=== PATIENT | male | born 1950 | race Caucasian/White ===

== ENCOUNTER 2016-06-25 11:41 | Inpatient (IN) | payer MEDICARE, OTHER ==
[~2016-06-25] VITALS: Ht 170.2 cm; Wt 87.5 kg
[~2016-06-25 11:41] MED LIST: MECL12.5 PO; METO50TA16 PO; RANO500T2 PO; VERA120T77 PO
[2016-06-25] MEDS ORDERED: ASPIRIN 325 MG TAB PO STA (12:17)
[2016-06-25] MEDS ORDERED: NITROGLYCERIN (SL) 0.4 MG TAB SL PRN ×2 (12:30→15:00)
--- NOTE | 2016-06-25 12:41 | RADRPT ---
PROCEDURE: XR Chest. CLINICAL INDICATION: Chest pain TECHNIQUE: Single frontal view of the chest was obtained COMPARISON: 07/22/15 FINDINGS: The heart is enlarged. The thoracic aorta is calcified. There is a possible 1 cm calcified granuloma in the left mid lung. There is no focal infiltrate. There is no pleural effusion or pneumothorax. RPTAT: AA IMPRESSION: Mild cardiomegaly. Calcified aorta consistent with atherosclerotic disease. Possible left midlung calcified granuloma. .Rom Reyes MD, MD Date Time Electronically viewed and signed by .Rom Reyes MD, on 06/25/2016 12:41 .S/
[2016-06-25 12:47] LABS: ADD SCAN DIFF NO
[2016-06-25 13:00] LABS: ABNORMAL IP MESSAGE 1; HEMATOCRIT 48.2 % (42.0-52.0); HEMOGLOBIN 15.9 g/dl (14.0-18.0); MEAN CORPUSCULAR HEMOGLOBIN 30.5 pg (29.0-33.0); MEAN CORPUSCULAR VOLUME 92.5 fl (82.0-101.0); RED BLOOD COUNT 5.21 10^6/ul (4.70-6.10); RED CELL DISTRIBUTION WIDTH 13.2 % (11.5-14.5)
[2016-06-25 13:01] LABS: POTASSIUM 4.4 mmol/L (3.5-5.1)
[2016-06-25 13:04] LABS: CREATININE 0.98 mg/dl (0.61-1.24)
[2016-06-25 13:05] LABS: CALCIUM 9.2 mg/dl (8.4-10.2)
[2016-06-25 13:08] LABS: INR 1.01; PROTIME 13.3 Sec (12.2-14.2)
[2016-06-25 13:09] LABS: PARTIAL THROMBOPLASTIN TIME 30.3 Sec (25.0-35.0)
[2016-06-25 13:25] LABS: TROPONIN-I 0.161 ng/ml (0.00-0.12)
[2016-06-25 13:31] LABS: CK-MB 4.99 ng/ml (0.0-2.4)
[2016-06-25 13:33] LABS: TROPONIN-I 0.167 ng/ml (0.00-0.12)
[2016-06-25] MEDS ORDERED: ATOR20TA38 PO (13:38)
[2016-06-25] MEDS ORDERED: NIAC100T2 PO (13:39)
[2016-06-25] MEDS ORDERED: SOD CHLORIDE 0.9% 1,000 ML IV SCH (14:01)
--- NOTE | 2016-06-25 14:01 | ERA ---
ER Documentation Chief Complaint Date/Time DATE: 06/25/16 TIME: 13:57 Chief Complaint REFERRED TO ED BY DR HERNANDEZ D/T UNSTABLE ANGINA HPI This is a 66-year-old male who presents to the emergency room for evaluation of chest pain. 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 Hernandez and was referred to the emergency room for evaluation of unstable angina. This patient does have a history of hypertension and CAD with a stent placed in 2016. He describes his pain as an achy pain in the center of his chest with no radiation, and no associated shortness of breath. This patient does state that he takes high blood pressure medication, high cholesterol medication. He is denying any relieving factors for his pain ROS All systems reviewed and are negative except as per history of present illness. Medications Home Meds Reported Medications Niacin* (Niacin*) 100 Mg Tablet, 100 MG PO QHS, TAB 06/25/16 Atorvastatin Calcium* (Atorvastatin Calcium*) 20 Mg Tablet, 20 MG PO QHS, #30 TAB 06/25/16 Ranolazine* (Ranexa*) 500 Mg Tab.sr.12h, 500 MG PO Q12, TAB 07/22/15 Metoprolol Succinate* (Toprol XL*) 50 Mg Tab.er.24h, 50 MG PO DAILY, #30 TAB 07/22/15 Verapamil Hcl* (Verapamil ER*) 120 Mg Tablet.er, 120 MG PO DAILY, TAB.SA 07/22/15 Discontinued Reported Medications Meclizine Hcl* (Meclizine Hcl*) 12.5 Mg Tablet, 12.5 MG PO DAILY Y for DIZZY, TAB 07/22/15 Allergies Allergies: Coded Allergies: No Known Drug Allergies (Verified Allergy, Unknown, 06/25/16) PMhx/Soc History of Surgery: Yes (RT INGUINAL HERNIA REPAIR) Anesthesia Reaction: No Hx Neurological Disorder: No Hx Respiratory Disorders: No Hx Cardiac Disorders: Yes (NM, STROKE) Hx Psychiatric Problems: No Hx Miscellaneous Medical Probl: No Hx Alcohol Use: No Hx Substance Use: No Hx Tobacco Use: Yes (2 TO 3 CIG A DAY) Physical Exam Vitals Vital Signs Date Time Temp Pulse Resp B/P Pulse Ox O2 Delivery O2 Flow Rate FiO2 06/25/16 11:44 96.7 62 16 101/59 99 Physical Exam INITIAL VITAL SIGNS: Reviewed by me GENERAL: The patient is well developed and appropriate for usual state of health in no apparent distress HEENT: Pupils equal, round, and reactive to light. EOMI. There is no scleral icterus. NECK: C-spine is soft and supple, there is no meningismus. There is no cervical lymphadenopathy. LUNGS: Clear to auscultation bilaterally. There are no rales, wheezes or rhonchi. HEART: Regular rate and rhythm, no murmurs, clicks, rubs or gallops. ABDOMEN: Soft, non-tender, non-distended. There are bowel sounds in all four quadrants. No rebound or guarding. EXTREMITIES: There is no peripheral cyanosis or edema. No focal swelling or erythema. NEUROLOGICAL: The patient moves all four extremities with 5/5 strength. Cranial nerves II - XII are intact. Normal gait. Alert and oriented SKIN: There is no apparent rash or petechiae. HEME/LYMPHATIC: There is no evidence of excessive bruising or lymphedema. PSYCHIATRIC: The patient does not appear anxious or depressed. Result Diagram: 06/25/16 1235 06/25/16 1235 Results 24 hrs Laboratory Tests Test 06/25/16 12:35 White Blood Count 7.610^3/ul Red Blood Count 5.2110^6/ul Hemoglobin 15.9g/dl Hematocrit 48.2% Mean Corpuscular Volume 92.5fl Mean Corpuscular Hemoglobin 30.5pg Mean Corpuscular Hemoglobin Concent 33.0g/dl Red Cell Distribution Width 13.2% Platelet Count Pending Mean Platelet Volume fl Neutrophils % 53.2% Lymphocytes % 37.4% Monocytes % 6.2% Eosinophils % 1.2% Basophils % 0.7% Nucleated Red Blood Cells % 0.0/100WBC Neutrophils # 4.010^3/ul Lymphocytes # 2.810^3/ul Monocytes # 0.510^3/ul Eosinophils # 0.110^3/ul Basophils # 0.110^3/ul Nucleated Red Blood Cells # 0.010^3/ul Prothrombin Time 13.3Sec Prothrombin Time Ratio 1.0 INR International Normalized Ratio 1.01 Activated Partial Thromboplast Time 30.3Sec Sodium Level 139mmol/L Potassium Level 4.4mmol/L Chloride Level 102mmol/L Carbon Dioxide Level 25mmol/L Anion Gap 16 Blood Urea Nitrogen 14mg/dl Creatinine 0.98mg/dl Glucose Level 97mg/dl Calcium Level 9.2mg/dl Creatine Kinase 126IU/L Creatine Kinase Index 4.0 Creatinine Kinase MB (Mass) 4.99ng/ml Troponin I 0.167ng/ml Current Medications Medications (Trade) Dose Ordered Sig/Chance Route PRN Reason Start Time Stop Time Status Last Admin Dose Admin Aspirin (Aspirin) 325 mg ONCE STAT PO 06/25/16 12:17 06/25/16 12:19 DC 06/25/16 12:37 Nitroglycerin (Nitroglycerin (Sl Tab) 0.4 Mg) 1 tab Q5M UP TO 3 DOSES PRN SL CHEST PAIN 06/25/16 12:30 06/25/16 12:38 Procedures/MDM EKG: #1 Rate/Rhythm: [Normal Sinus Rhythm] QRS, ST, T-waves: S and T-wave abnormality, consider inferior lateral ischemia Impression: [No evidence of ischemia or arrhythmia] EKG: #2 Rate/Rhythm: Sinus bradycardia QRS, ST, T-waves: [No changes consistent w/ acute ischemia] Impression: [No evidence of ischemia or arrhythmia] Chest X-ray 1V Interpreted by me: Soft Tissue: No acute abnormalities Bones: No acute abnormalities Mediastinum/Cardiac Silhouette/Lungs: [No acute abnormalities] This 66-year-old male presents to the emergency room for evaluation of chest pain. This patient was sent in by his flight data technician office, Dr. Hernandez. When I evaluated this patient he did describe having chest pain in the center of his chest. He was not hypoxic, and he was hemodynamically stable. His first EKG did show minor ST and T-wave abnormalities in the inferior lateral leads. Lab work was obtained including a troponin. The patient was also given nitroglycerin and aspirin in the emergency room. His troponin came back slightly elevated. The repeat EKG does not show any evolving changes. This patient will be placed in for admission at this time on a telemetry floor under the care of Dr. Burk. 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 Cardiac Critical Care: Excluding all billable procedures Time: 33 minutes Treatments/Evaluations: Close monitoring for dangerous arrhythmia and cardiovascular collapse, while treating with advance cardiac medications and techniques. Departure Diagnosis: Primary Impression: Non-ST elevation NM (NSTEMI) Additional Impression: Chest pain Condition: Stable NICOLLE DELGADO DO Jun 25, 2016 14:01
[2016-06-25 14:14] LABS: LYMPHOCYTES # 2.6 10^3/ul (0.8-2.9); MONOCYTE # 0.8 10^3/ul (0.3-0.9)
[2016-06-25 14:15] LABS: PLATELET ESTIMATE PLT APPEAR DECREASED
[2016-06-25 14:18] LABS: WHITE BLOOD COUNT 7.6 10^3/ul (4.8-10.8)
[2016-06-25] MEDS ORDERED: ONDANSETRON 4 MG INJ IV PRN ×2 (14:30→15:00)
[2016-06-25] MEDS ORDERED: ACETAMINOPHEN 325 MG TAB PO PRN (14:30)
[2016-06-25] MEDS ORDERED: NACL 0.9% 3 ML SYG IV SCH (15:00)
[2016-06-25] MEDS ORDERED: BISACODYL (EC) 5 MG TAB PO PRN (15:00)
[2016-06-25] MEDS ORDERED: DOCUSATE SODIUM 100 MG CAP PO PRN (15:00)
[2016-06-25] MEDS ORDERED: LORAZEPAM 0.5 MG TAB PO PRN (15:00)
[2016-06-25] MEDS ORDERED: morphine 2 MG INJ IV PRN (15:00)
[2016-06-25 15:44] LABS: CK-MB 6.67 ng/ml (0.0-2.4)
[2016-06-25 15:51] LABS: TROPONIN-I 0.366 ng/ml (0.00-0.12)
[2016-06-25 16:00] VITALS: TEMP 98.3
[2016-06-25] MEDS ORDERED: ENOXAPARIN 80 MG/0.8 ML SYG SC SCH (16:30)
[2016-06-25 17:06] VITALS: BP 117/69; PULSE 60; RESP 18; Ht 170.2 cm; Wt 87.5 kg
[2016-06-25 17:13] VITALS: PULSE 67
[2016-06-25] MEDS: DEXTROSE 5%-0.45% NACL 1,000 ML IV SCH (17:35)
--- NOTE | 2016-06-25 18:09 | CONS ---
DATE OF ADMISSION: 06/25/2016 DATE OF CONSULTATION: 06/25/2016 REASON FOR CONSULTATION: Chest pain, positive troponin concerning for non-ST elevation myocardial i nfarction. History of percutaneous transluminal coronary angioplasty and stent placed. REQUESTING PHYSICIAN: Dr. Bueno from the hospitalist service. HISTORY OF PRESENT ILLNESS: Mr. Horowitz is a 66-year-old male with history of prior PTCA and stent placement to circumflex, patent by left heart catheterization 07/2015, hypertension, dyslipidemia wh o presented with complaints of substernal chest pain, onset this morning that awoke him from sleep, describes a pressure-like sensation. Upon arrival in the emergency department, temperature 96.7, bl ood pressure 101/59, pulse 60, respirations 16, saturating 99%. The patient's labs were notable for a sodium 139, potassium 4.4, creatinine 0.9, BUN 14. Troponin negative. White blood count 7.6, he moglobin 15.9, platelet count 71 and INR of 1.0. The patient underwent a chest x-ray revealing mild cardiomegaly and calcified aorta. The patient's electrocardiogram revealed normal sinus rhythm at a rate of 60, normal axis, normal intervals with inferior and lateral T-wave inversions. The patien t subsequently has been waiting in the ER for admission. Patient states he had some improvement in chest pain but still has mild substernal chest pain. PAST MEDICAL HISTORY: As above in HPI. MEDICATIONS CURRENTLY IN HOSPITAL: 1. Toprol-XL 50 mg daily. 2. Verapamil 120 mg daily. 3. Aspirin 81 mg daily. 4. Lipitor 20 mg at bedtime. 5. Niacin 100 mg at bedtime. 6. Ranexa 500 mg every 12 hours. 7. Pepcid 20 q.12h. 8. IV fluid hydration. ALLERGIES: NO KNOWN DRUG ALLERGIES. SOCIAL HISTORY: No tobacco, ETOH or illicit drug use. FAMILY HISTORY: Negative for sudden cardiac or early CAD. REVIEW OF SYSTEMS: As above in HPI. CONSTITUTIONAL: No fevers, chills. PULMONARY: No current shortness of breath. CARDIOVASCULAR: Intermittent chest pain. GASTROINTESTINAL: No vomiting. GENITOURINARY: No hematuria. MUSCULOSKELETAL: Degenerative joint disease. PSYCHIATRIC: The patient denies depression. NEUROLOGIC: No documented history of CVA. PHYSICAL EXAMINATION: VITAL SIGNS: Temperature 98.3, blood pressure 117/74, pulse 54, respirations 20, sat 98%. GENERAL: The patient is alert, awake and complaining of substernal chest pain. NECK: JVP approximately 8 cm water. CHEST: Fair air movement throughout. HEART: Bradycardic, regular rhythm, normal S1, S2, I/ systolic murmur, nondisplaced PMI. ABDOMEN: Positive bowel sounds, soft. EXTREMITIES: No edema, 1+ pulses bilateral posterior tibial. LABORATORY DATA: As above in HPI. Since admit patient had troponins which are mildly up trended fr om 0.161 to 0.366. IMAGING STUDIES: As above in HPI. No further imaging studies for my review at this time. ECG: As above in HPI. No further electrocardiograms for my review at this time. IMPRESSION: 1. Positive troponin concerning for non-ST elevation myocardial infarction with mild up trending. 2. Chest pain concerning for acute coronary syndrome. 3. Abnormal electrocardiogram with inferior and lateral T-wave inversions. Assess for acute harrison ry syndrome. 4. History of percutaneous transluminal coronary angioplasty and stent placement to circumflex, pat ent by catheterization in July 2015. 5. Dyslipidemia. 6. Hypertension. RECOMMENDATIONS: 1. At this time, would maintain patient on telemetry monitoring to follow rhythm and rate control c losely. 2. We will continue the patient's Toprol-XL but will discontinue the patient's verapamil given some low blood pressure readings, follow blood pressure closely. Continue to trend the patient's cardia c enzymes to assess for any significant cardiac damage and if patient does begin to have an uptrend then at that time would initiate the patient on systemic anticoagulation with heparin and/or Lovenox . 3. Continue the patient's aspirin at this time. We will give consideration to initiation of Plavix. 4. Check a fasting lipid panel and adjust the patient's statin and Niacin therapy as necessary. 5. Will check a 2D echocardiogram to further assess patient's ejection fraction, wall motion and an y major valve abnormalities. 6. If the patient has no significant uptrend on cardiac enzymes will consider stress testing. If ruy ruggiero does continue to have chest pain concerning for acute coronary syndrome or further up trending cardiac enzymes the patient will be scheduled for left heart catheterization to take place as soon as possible. Thank you for allowing me to take part in the care of this patient. I will continue to follow very closely with you with further recommendations to be made as patient progresses through his inpatient hospital clinical course. Dictated By: GHULAM CHANEL/RUPERTO Conf#: [id number] DID#: [id number] CC: RIO BUENO MD;*EndCC*
--- NOTE | 2016-06-25 18:50 | HP ---
DATE OF ADMISSION: 06/25/2016 UNDER WATER ASSISTANT: Dr. Christian Hernandez. CHIEF COMPLAINT: Chest pain. HISTORY OF PRESENT ILLNESS: This is a pleasant 66-year-old gentleman with past medical history of h ypertension, dyslipidemia, coronary artery disease status post PCI x2 and thrombocytopenia who prese nts to [facility] secondary to having chest pain which woke him up this morning at 3:00 a.m. The patient denies having any nausea, vomiting or diarrhea. The chest pain was 8/10, ra diating to his left shoulder, accompanied with shortness of breath without any diaphoresis. Upon ar rival to the emergency room, the patient's EKG showed normal sinus rhythm, ST-T wave abnormality, co nsider inferior lateral ischemia, no evidence of ischemia or arrhythmia. Patient was found to have mildly elevated troponin of 0.161. Cardiology was consulted. He was placed on Lovenox 80 mg, aspir in and nitroglycerin. At this time, he stated that the chest discomfort has been improving, althoug h he is still having some discomfort in the left anterior chest area. Denies any other discomfort. PAST MEDICAL AND SURGICAL HISTORY: As above per HPI. MEDICATIONS: 1. Lipitor 20 mg. 2. Toprol-XL 50 mg. 3. Niacin 100 mg. 4. Lovenox 50 mg. 5. Verapamil 120 mg. ALLERGIES: NO KNOWN DRUG ALLERGIES. FAMILY HISTORY: Noncontributory. SOCIAL HISTORY: Positive for smoking 7 to 8 cigarettes per day. No alcohol, no illicit drugs. REVIEW OF SYSTEMS: As above per HPI. Denies any fever, chills, weight gain, weight loss, anorexia. Positive for chest pain. No shortness of breath, no palpitation, no edema. No acute visual acuit y, diplopia, no wheezing, no neck pain, no restricted range of motion in upper and lower extremities . No dysuria, hematuria, urgency, incontinence. No change in the color of stool, or any other disc omfort. PHYSICAL EXAMINATION: VITAL SIGNS: Temperature 98.3, pulse 60, respiration 20, blood pressure 124/70, oxygen 98% in room air. GENERAL APPEARANCE: The patient is lying in bed comfortably without acute distress. He is awake, a lert, oriented. He is able to answer my questions properly. EYES AND ENT: Conjunctivae and lids are normal. Pupils are normal. Hearing grossly normal. Lips were normal. Oral mucosa moist. NECK: Supple. Trachea is midline. No lymphadenopathy. RESPIRATORY: Effort is normal. Clear to auscultation bilaterally. CARDIOVASCULAR: Normal S1, S2. Regular rhythm and rate. No murmur, no bruits, no edema. Peripher al pulses, radial pulses palpable. Cap refill is normal. CHEST: Normal expansion of thorax during inspiration. GASTROINTESTINAL: Abdomen is soft, nontender, not distended. Bowel sounds present. No guarding or rebound. GENITOURINARY: Deferred. MUSCULOSKELETAL: Upper and lower extremities within normal limits. Full range of motion, strength 5/5 both upper and lower extremities. NEUROLOGIC: Cranial nerves II through XII are grossly intact. PSYCHIATRIC: Normal judgment and insight. Alert and oriented x3. Mood and affect is normal. LABORATORY WORK AND IMAGING: Sodium 139, potassium 4.4, chloride 102, bicarbonate 25, BUN 14, creat inine 0.98, glucose 97, calcium 9.2. Troponin 0.161, 0.167 0.366, WBC 7.6, hemoglobin 15.9, hematoc rit 48.2, platelets 71. ASSESSMENT AND PLAN: 1. Non-ST myocardial infarction. Cardiology has been consulted. Patient was treated with a dose o f Lovenox in the course of emergency room. 2. Aspirin 325 mg. At this time, will place the patient on aspirin 325 mg, secondary to thrombocyt openia. Cardiology has been consulted. Patient has been set up for the stress test tomorrow. 3. Essential hypertension, well controlled on Toprol and verapamil. 4. History of thrombocytopenia, chronic no evidence of bleeding. 5. Nicotine dependency. Place the patient on nicotine patch. Education was provided. Smoking jhony sation was recommended. 6. Dyslipidemia. Continue statin. Follow low up lipid panel in a.m. We will continue to monitor patient closely. Further recommendations, management and treatment as per clinical course. Total amount of time was spent for evaluation of patient and admission workup 40 minutes. Dictated By: RIO NEAL/NTS Conf#: [id number] DID#: [id number]
[2016-06-25 19:46] VITALS: BP 128/57; RESP 20
[2016-06-25 20:13] VITALS: PULSE 69
[2016-06-25] MEDS: NIACIN 100 MG TAB PO SCH (21:00)
[2016-06-25 21:24] LABS: CK-MB 10.9 ng/ml (0.0-2.4); TROPONIN-I 1.07 ng/ml (0.00-0.12)
[2016-06-25] MEDS: RANOLAZINE (SR) 500 MG TAB PO SCH (22:07)
[2016-06-25] MEDS: NICOTINE (14 MG/24 HR) PATCH TRANSDERM SCH (22:07)
[2016-06-25] MEDS: ATORVASTATIN 20 MG TAB PO SCH (22:07)
[2016-06-25] MEDS: FAMOTIDINE 20 MG TAB PO SCH (22:08)
[2016-06-25] MEDS: ISOSORBIDE DINITRATE 10 MG TAB PO SCH (22:08)
[2016-06-25 23:43] VITALS: BP 119/58; RESP 20
[2016-06-26] VITALS (11 sets, daily range): BP systolic 115–124; BP diastolic 57–67; PULSE 69–83; RESP 18–20
[2016-06-26 02:41] LABS: ADD SCAN DIFF NO
[2016-06-26 02:44] LABS: ABNORMAL IP MESSAGE 1; BASOPHILS % 0.4 % (0.0-2.0); EOSINOPHILS # 0.1 10^3/ul (0.0-0.5); EOSINOPHILS % 1.1 % (0.0-7.0); HEMATOCRIT 42.7 % (42.0-52.0); HEMOGLOBIN 14.4 g/dl (14.0-18.0); LYMPHOCYTES # 2.9 10^3/ul (0.8-2.9); LYMPHOCYTES % 29.3 % (15.0-51.0); MEAN CORPUSCULAR HEMOGLOBIN 30.9 pg (29.0-33.0); MEAN CORPUSCULAR HGB CONC 33.7 g/dl (32.0-37.0); MEAN CORPUSCULAR VOLUME 91.6 fl (82.0-101.0); MONOCYTE # 0.6 10^3/ul (0.3-0.9); MONOCYTES % 5.9 % (0.0-11.0); NEUTROPHIL # 6.2 10^3/ul (1.6-7.5); PLATELET COUNT 63 10^3/UL (140-415); RED BLOOD COUNT 4.66 10^6/ul (4.70-6.10); RED CELL DISTRIBUTION WIDTH 13.1 % (11.5-14.5)
[2016-06-26 02:52] LABS: POTASSIUM 3.7 mmol/L (3.5-5.1)
[2016-06-26 02:55] LABS: CREATININE 0.9 mg/dl (0.61-1.24)
[2016-06-26 02:56] LABS: CALCIUM 8.5 mg/dl (8.4-10.2); CHOL/HDL RATIO 2.7 RATIO; MAGNESIUM 1.9 mg/dl (1.7-2.5)
[2016-06-26 03:34] LABS: CK-MB 12.7 ng/ml (0.0-2.4); TROPONIN-I 2.64 ng/ml (0.00-0.12)
[2016-06-26 07:43] LABS: PLATELET COUNT 71 10^3/UL (140-415)
[2016-06-26] MEDS: ASPIRIN 81 MG TAB PO SCH (08:29)
[2016-06-26] MEDS: ISOSORBIDE DINITRATE 10 MG TAB PO SCH ×3 (08:29→21:03)
[2016-06-26] MEDS: RANOLAZINE (SR) 500 MG TAB PO SCH ×2 (08:29→21:03)
[2016-06-26] MEDS: FAMOTIDINE 20 MG TAB PO SCH ×2 (08:29→21:03)
[2016-06-26] MEDS: METOPROLOL (XL) 50 MG TAB PO SCH (08:30)
[2016-06-26] MEDS: NICOTINE (14 MG/24 HR) PATCH TRANSDERM SCH (08:30)
[2016-06-26] MEDS ORDERED: VERAPAMIL (SR) 120 MG TAB PO SCH (09:00)
[2016-06-26] MEDS: ACETAMINOPHEN 325 MG TAB PO PRN ×2 (09:25→21:10)
--- NOTE | 2016-06-26 10:15 | PN ---
Date/Time of Note Date/Time of Note DATE: 06/26/16 TIME: 10:09 Assessment/Plan VTE Prophylaxis VTE Prophylaxis Intervention: SCD's Lines/Catheters IV Catheter Type (from [facility]): Peripheral IV Assessment/Plan Chief Complaint/Hosp Course ASSESSMENT AND PLAN: 1. Non-ST myocardial infarction. Cardiology has been consulted. Continue aspirin, statin. Follow cardiology recommendation for left heart catheterization Lytic candidate for anticoagulation secondary to thrombocytopenia 3. Essential hypertension, well controlled on Toprol and verapamil. 4. History of thrombocytopenia, chronic no evidence of bleeding. 5. Nicotine dependency. Place the patient on nicotine patch. Education was provided. Smoking cessation was recommended. 6. Dyslipidemia. Continue statin. Well-controlled We will continue to monitor patient closely. Further recommendations, management and treatment as per clinical course. Problems: Subjective 24 Hr Interval Summary Free Text/Dictation Patient denies any chest pain or shortness of breath N.p.o. secondary to upcoming procedure Family at the bedside, questions were answered Exam/Review of Systems Vital Signs Vitals Vital Signs Date Time Temp Pulse Resp B/P Pulse Ox O2 Delivery O2 Flow Rate FiO2 06/26/16 09:31 2.0 06/26/16 08:26 73 06/26/16 07:37 98.5 18 119/66 94 06/25/16 16:00 Room Air Intake and Output 06/25/16 06/25/16 06/26/16 15:00 23:00 07:00 Intake Total 300 ml 740 ml Balance 300 ml 740 ml Exam General: The patient is well-developed, Not in acute distress. HEENT: Atraumatic, normocephalic. The pupils are equal and round . Neck: Supple with full range of motion. Chest: Normal expansion of the thorax during inspiration Lungs: Clear to auscultation bilaterally Heart: Normal S1-S2, Regular rhythm and rate. Abdomen: Soft , nontender, nondistended , bowel sounds are present. Extremities: Normal to inspection, no edema no cyanosis Neurologic: Normal mental status,The patient is awake, alert and oriented . Results Result Diagram: 06/26/16 0230 06/26/16 0230 Results 24 hrs Laboratory Tests Test 06/25/16 12:35 06/25/16 14:50 06/25/16 20:30 06/26/16 02:30 White Blood Count 7.6 10.0 # Red Blood Count 5.21 4.66 L Hemoglobin 15.9 14.4 Hematocrit 48.2 42.7 Mean Corpuscular Volume 92.5 91.6 Mean Corpuscular Hemoglobin 30.5 30.9 Mean Corpuscular Hemoglobin Concent 33.0 33.7 Red Cell Distribution Width 13.2 13.1 Platelet Count 71 L 63 L Mean Platelet Volume Neutrophils % 52.0 62.0 Band Neutrophils % 1.0 Lymphocytes % 34.0 29.3 Reactive Lymphocytes % 3.0 Monocytes % 10.0 5.9 Eosinophils % 1.1 Basophils % 0.4 Nucleated Red Blood Cells % 0.0 Neutrophils # 4.0 6.2 Lymphocytes # 2.6 2.9 Monocytes # 0.8 0.6 Eosinophils # 0.1 Basophils # 0.0 Nucleated Red Blood Cells # 0.0 Differential Comment MANUAL DIFF Platelet Estimate PLT APPEAR DECREASED Large Platelets 1+ Prothrombin Time 13.3 Prothrombin Time Ratio 1.0 INR International Normalized Ratio 1.01 Activated Partial Thromboplast Time 30.3 Sodium Level 139 139 Potassium Level 4.4 3.7 Chloride Level 102 106 Carbon Dioxide Level 25 24 Anion Gap 16 13 Blood Urea Nitrogen 14 14 Creatinine 0.98 0.90 Glucose Level 97 95 Calcium Level 9.2 8.5 Creatine Kinase 126 135 151 165 Creatine Kinase Index 4.0 4.9 7.2 7.7 Creatinine Kinase MB (Mass) 4.99 H 6.67 H 10.90 H 12.70 H Troponin I 0.167 *H 0.366 *H 1.070 *H 2.640 *H Magnesium Level 1.9 Triglycerides Level 66 Cholesterol Level 68 L LDL Cholesterol, Calculated 30 HDL Cholesterol 25 L Cholesterol/HDL Ratio 2.7 Medications Medications Current Medications Atorvastatin Calcium (Lipitor) 20 mg QHS PO Last administered on 06/25/16 22: 07; Admin Dose 20 MG; Start 06/25/16 at 21:00 Metoprolol Succinate (Toprol Xl) 50 mg DAILY PO Last administered on 06/26/16 08:30; Admin Dose 50 MG; Start 06/26/16 at 09:00 Niacin (Niacin) 100 mg QHS PO ; Start 06/25/16 at 21:00 Ranolazine (Ranexa) 500 mg Q12 PO Last administered on 06/26/16 08:29; Admin Dose 500 MG; Start 06/25/16 at 21:00 Verapamil HCl 120 mg 120 mg DAILY PO ; Start 06/26/16 at 09:00; Status Future Hold Dextrose/Sodium Chloride (D5-1/2ns) 1,000 ml @ 50 mls/hr Q20H IV Last administered on 06/25/16 17:35; Admin Dose 50 MLS/HR; Start 06/25/16 at 14:40 Lorazepam (Ativan) 0.5 mg Q8H PRN PO ANXIETY; Start 06/25/16 at 15:00 Ondansetron HCl (Zofran Inj) 4 mg Q6H PRN IV NAUSEA AND/OR VOMITING; Start 01/01 at 15:00 Aspirin (Aspirin) 81 mg DAILY PO Last administered on 06/26/16 08:29; Admin Dose 81 MG; Start 06/26/16 at 09:00 Nitroglycerin (Nitroglycerin (Sl Tab) 0.4 Mg) 1 tab Q5M PRN SL CHEST PAIN; Start 06/25/16 at 15:00 Morphine Sulfate (morphine) 1 mg Q4H PRN IV PAIN LEVEL 7-10; Start 06/25/16 at 15:00 Docusate Sodium (Colace) 100 mg Q12H PRN PO CONSTIPATION; Start 06/25/16 at 15: 00 Bisacodyl (Dulcolax) 5 mg DAILY PRN PO CONSTIPATION; Start 06/25/16 at 15:00 Famotidine (Pepcid) 20 mg Q12 PO Last administered on 06/26/16 08:29; Admin Dose 20 MG; Start 06/25/16 at 21:00 Isosorbide Dinitrate (Isordil) 10 mg TID PO Last administered on 06/26/16 08: 29; Admin Dose 10 MG; Start 06/25/16 at 21:00 Nicotine (Nicoderm 14 Mg/ 24hr) 1 patch DAILY TRANSDERM Last administered on 08:30; Admin Dose 1 PATCH; Start 06/25/16 at 19:00 Acetaminophen (Tylenol Tab) 650 mg Q6H PRN PO PAIN AND OR ELEVATED TEMP Last administered on 06/26/16 09:25; Admin Dose 650 MG; Start 06/26/16 at 09:30 RIO BUENO MD Jun 26, 2016 10:15
[2016-06-26] MEDS: DEXTROSE 5%-0.45% NACL 1,000 ML IV SCH (10:24)
--- NOTE | 2016-06-26 11:04 | CONS ---
Date/Time of Note Date/Time of Note DATE: 06/26/16 TIME: 10:58 Assessment/Plan Assessment/Plan Additional Assessment/Plan 1. Positive troponin concerning for non-ST elevation myocardial infarction with mild up trending- now trop 2.5 - low plts - discussed with Dr. Hernandez - will check another set of tropeolins - if downtrending, will consider Stress test vs C tomorrow. 2. Chest pain concerning for acute coronary syndrome- no CP now, con't Rx - limited given low platelets. 3. Abnormal electrocardiogram with inferior and lateral T-wave inversions. Assess for acute coronary syndrome - NSTEMI Rx now - no lovenox with low platelets. 4. History of percutaneous transluminal coronary angioplasty and stent placement to circumflex, patent by catheterization in July 2015- if trop high, LHC with DR. Hernandez tomorrow. 5. Dyslipidemia. 6. Hypertension- well Rx now, will Rx medically. Consultation Date/Type/Reason Admit Date/Time Jun 25, 2016 at 14:02 Initial Consult Date 24 HR Interval Summary Free Text/Dictation Now trop 2.5 - low plts - discussed with Dr. Hernandez - will check another set of tropeolins - if downtrending, will consider Stress test vs C tomorrow. ROS: No fever, no chills, no nausea, no vomiting, no diarrhea/constipation No recent weight changes No chest pain, no PND, no orthopnea No dizziness, blurred vision No thirst, no heat or cold intolerance Exam/Review of Systems Vital Signs Vitals Vital Signs Date Time Temp Pulse Resp B/P Pulse Ox O2 Delivery O2 Flow Rate FiO2 06/26/16 09:31 2.0 06/26/16 08:26 73 06/26/16 07:37 98.5 18 119/66 94 06/25/16 16:00 Room Air Intake and Output 06/25/16 06/25/16 06/26/16 14:59 22:59 06:59 Intake Total 300 ml 740 ml Balance 300 ml 740 ml Exam General: WN/WD/NAD, AOx 3 HEENT: Unicetric/atraumatic/EOMI (follows commands) NECK: JVD elevated, no thyromegaly Lymph: no lymphadenopathy HEART: regular with no S3, II/ systolic murmur at apex LUNGS: Coarse sounds ABD: soft, NT, ND, +BS : Intact Neuro: non focal SKIN: chronic changes EXT: trace edema Results Result Diagram: 06/26/16 0230 06/26/16 0230 Results 24 hrs Laboratory Tests Test 06/25/16 12:35 06/25/16 14:50 06/25/16 20:30 06/26/16 02:30 White Blood Count 7.6 10.0 # Red Blood Count 5.21 4.66 L Hemoglobin 15.9 14.4 Hematocrit 48.2 42.7 Mean Corpuscular Volume 92.5 91.6 Mean Corpuscular Hemoglobin 30.5 30.9 Mean Corpuscular Hemoglobin Concent 33.0 33.7 Red Cell Distribution Width 13.2 13.1 Platelet Count 71 L 63 L Mean Platelet Volume Neutrophils % 52.0 62.0 Band Neutrophils % 1.0 Lymphocytes % 34.0 29.3 Reactive Lymphocytes % 3.0 Monocytes % 10.0 5.9 Eosinophils % 1.1 Basophils % 0.4 Nucleated Red Blood Cells % 0.0 Neutrophils # 4.0 6.2 Lymphocytes # 2.6 2.9 Monocytes # 0.8 0.6 Eosinophils # 0.1 Basophils # 0.0 Nucleated Red Blood Cells # 0.0 Differential Comment MANUAL DIFF Platelet Estimate PLT APPEAR DECREASED Large Platelets 1+ Prothrombin Time 13.3 Prothrombin Time Ratio 1.0 INR International Normalized Ratio 1.01 Activated Partial Thromboplast Time 30.3 Sodium Level 139 139 Potassium Level 4.4 3.7 Chloride Level 102 106 Carbon Dioxide Level 25 24 Anion Gap 16 13 Blood Urea Nitrogen 14 14 Creatinine 0.98 0.90 Glucose Level 97 95 Calcium Level 9.2 8.5 Creatine Kinase 126 135 151 165 Creatine Kinase Index 4.0 4.9 7.2 7.7 Creatinine Kinase MB (Mass) 4.99 H 6.67 H 10.90 H 12.70 H Troponin I 0.167 *H 0.366 *H 1.070 *H 2.640 *H Magnesium Level 1.9 Triglycerides Level 66 Cholesterol Level 68 L LDL Cholesterol, Calculated 30 HDL Cholesterol 25 L Cholesterol/HDL Ratio 2.7 Medications Medications Current Medications Atorvastatin Calcium (Lipitor) 20 mg QHS PO Last administered on 06/25/16t 22: 07; Admin Dose 20 MG; Start 06/25/16 at 21:00 Metoprolol Succinate (Toprol Xl) 50 mg DAILY PO Last administered on 06/26/16 08:30; Admin Dose 50 MG; Start 06/26/16 at 09:00 Niacin (Niacin) 100 mg QHS PO ; Start 06/25/16 at 21:00 Ranolazine (Ranexa) 500 mg Q12 PO Last administered on 06/26/16 08:29; Admin Dose 500 MG; Start 06/25/16 at 21:00 Verapamil HCl 120 mg 120 mg DAILY PO ; Start 06/26/16 at 09:00; Status Future Hold Dextrose/Sodium Chloride (D5-1/2ns) 1,000 ml @ 50 mls/hr Q20H IV Last administered on 06/26/16 10:24; Admin Dose 50 MLS/HR; Start 06/25/16 at 14:40 Lorazepam (Ativan) 0.5 mg Q8H PRN PO ANXIETY; Start 06/25/16 at 15:00 Ondansetron HCl (Zofran Inj) 4 mg Q6H PRN IV NAUSEA AND/OR VOMITING; Start 01/01 at 15:00 Aspirin (Aspirin) 81 mg DAILY PO Last administered on 06/26/16 08:29; Admin Dose 81 MG; Start 06/26/16 at 09:00 Nitroglycerin (Nitroglycerin (Sl Tab) 0.4 Mg) 1 tab Q5M PRN SL CHEST PAIN; Start 06/25/16 at 15:00 Morphine Sulfate (morphine) 1 mg Q4H PRN IV PAIN LEVEL 7-10; Start 06/25/16 at 15:00 Docusate Sodium (Colace) 100 mg Q12H PRN PO CONSTIPATION; Start 06/25/16 at 15: 00 Bisacodyl (Dulcolax) 5 mg DAILY PRN PO CONSTIPATION; Start 06/25/16 at 15:00 Famotidine (Pepcid) 20 mg Q12 PO Last administered on 06/26/16 08:29; Admin Dose 20 MG; Start 06/25/16 at 21:00 Isosorbide Dinitrate (Isordil) 10 mg TID PO Last administered on 06/26/16 08: 29; Admin Dose 10 MG; Start 06/25/16 at 21:00 Nicotine (Nicoderm 14 Mg/ 24hr) 1 patch DAILY TRANSDERM Last administered on 08:30; Admin Dose 1 PATCH; Start 06/25/16 at 19:00 Acetaminophen (Tylenol Tab) 650 mg Q6H PRN PO PAIN AND OR ELEVATED TEMP Last administered on 06/26/16 09:25; Admin Dose 650 MG; Start 06/26/16 at 09:30 MARIAH CHRISTINE MD Jun 26, 2016 11:04
--- NOTE | 2016-06-26 16:09 | CONS ---
Date/Time of Note Date/Time of Note DATE: 06/26/16 TIME: 15:59 Assessment/Plan Assessment/Plan Chief Complaint/Hosp Course The patient is a 66-year-old gentleman with past medical history of hypertension , dyslipidemia, coronary artery disease status post PCI x2 and thrombocytopenia positive troponins concerning for non-ST elevation myocardial infarction with plan for cardiac cath tomorrow. - Per chart review, he appears to have a history of thrombocytopenia, chronic, without evidence of bleeding. No obvious offending medications. - Peripheral smear reviewed by Dr. Sanchez and showed decreased platelets, no blasts, rare large platelets. - WBC and Hgb normal and no evidence of blasts with chronic history arguing against acute leukemia or microangiopathic process. Will check LDH, DIC panel, HIV and hepatitis panel. Patient may have chronic ITP not requiring intervention although platelets are not particularly enlarged except for rare large platelets. Patient also may have an inherited platelet disorder based on family history, although again usually MPV significantly elevated indicating large platelets. - As long as platelets remain above 50, there is no contraindication to antiplatelet or anticoagulant therapies. Will continue to monitor. Problems: Consultation Date/Type/Reason Admit Date/Time Jun 25, 2016 at 14:02 Date of Consultation: Jun 26, 2016 Type of Consultation: Hematology Hx of Present Illness The patient is a 66-year-old gentleman with past medical history of hypertension , dyslipidemia, coronary artery disease status post PCI x2 and thrombocytopenia who presents to [facility] secondary to having chest pain which woke him up at 3:00 a.m. The chest pain was 8/10, radiating to his left shoulder, accompanied with shortness of breath without any diaphoresis. He was found to have positive troponins concerning for non-ST elevation myocardial infarction with plan for cardiac cath tomorrow. The patient currently denies chest pain. He and his family state that he has at least a 5 year history of thrombocytopenia and believe that it has been fairly stable since that time. He has not had bleeding. He states that his mom and son also have thrombocytopenia. He had previously seen a batterboard setter in [place] and it was thought that he had an inherited platelet disorder He had a stent placed 1 and 3 years ago without bleeding per patient. He is followed by Dr. Ngo and his family will obtain more information from his office. Past Medical History History of percutaneous transluminal coronary angioplasty and stent placement to circumflex, patent by catheterization in July 2015 Dyslipidemia. Hypertension History of thrombocytopenia, chronic Right inguinal hernia Family History Significant Family History: other (Mother and son with thrombocytopenia) Social History Positive for smoking 7 to 8 cigarettes per day. No alcohol, no illicit drugs. Alcohol Use: none Smoking Status: Current every day smoker (smoked 40 years x 1 ppd (10 cig/day more recently), no smoking for last 40 days) Drug Use: none Exam/Review of Systems Vital Signs Vitals Vital Signs Date Time Temp Pulse Resp B/P Pulse Ox O2 Delivery O2 Flow Rate FiO2 06/26/16 12:10 72 06/26/16 11:59 98.5 18 115/64 95 06/26/16 09:31 2.0 06/25/16 16:00 Room Air Intake and Output 06/25/16 06/25/16 06/26/16 15:00 23:00 07:00 Intake Total 300 ml 740 ml Balance 300 ml 740 ml Exam Constitutional: alert, oriented Psych: no complaints Head: normocephalic Eyes: nl conjunctiva Neck: non-tender, supple Respiratory: clear to auscultation Cardiovascular: regular rate and rhythm Gastrointestinal: non-tender, soft Musculoskeletal: nl extremities to inspection Neurological: [employer]ING [employer]UCATION TE[employer]ER II-XII intact Results Result Diagram: 06/26/16 0230 06/26/16 0230 Results 24 hrs Laboratory Tests Test 06/25/16 20:30 06/26/16 02:30 06/26/16 12:13 Creatine Kinase 151 165 Creatine Kinase Index 7.2 7.7 Creatinine Kinase MB (Mass) 10.90 H 12.70 H Troponin I 1.070 *H 2.640 *H 2.650 *H White Blood Count 10.0 # Red Blood Count 4.66 L Hemoglobin 14.4 Hematocrit 42.7 Mean Corpuscular Volume 91.6 Mean Corpuscular Hemoglobin 30.9 Mean Corpuscular Hemoglobin Concent 33.7 Red Cell Distribution Width 13.1 Platelet Count 63 L Mean Platelet Volume Neutrophils % 62.0 Lymphocytes % 29.3 Monocytes % 5.9 Eosinophils % 1.1 Basophils % 0.4 Nucleated Red Blood Cells % 0.0 Neutrophils # 6.2 Lymphocytes # 2.9 Monocytes # 0.6 Eosinophils # 0.1 Basophils # 0.0 Nucleated Red Blood Cells # 0.0 Sodium Level 139 Potassium Level 3.7 Chloride Level 106 Carbon Dioxide Level 24 Anion Gap 13 Blood Urea Nitrogen 14 Creatinine 0.90 Glucose Level 95 Calcium Level 8.5 Magnesium Level 1.9 Triglycerides Level 66 Cholesterol Level 68 L LDL Cholesterol, Calculated 30 HDL Cholesterol 25 L Cholesterol/HDL Ratio 2.7 Medications Medications Current Medications Atorvastatin Calcium (Lipitor) 20 mg QHS PO Last administered on 06/25/16 22: 07; Admin Dose 20 MG; Start 06/25/16 at 21:00 Metoprolol Succinate (Toprol Xl) 50 mg DAILY PO Last administered on 06/26/16 08:30; Admin Dose 50 MG; Start 06/26/16 at 09:00 Niacin (Niacin) 100 mg QHS PO ; Start 06/25/16 at 21:00 Ranolazine (Ranexa) 500 mg Q12 PO Last administered on 06/26/16 08:29; Admin Dose 500 MG; Start 06/25/16 at 21:00 Verapamil HCl 120 mg 120 mg DAILY PO ; Start 06/26/16 at 09:00; Status Future Hold Dextrose/Sodium Chloride (D5-1/2ns) 1,000 ml @ 50 mls/hr Q20H IV Last administered on 06/26/16 10:24; Admin Dose 50 MLS/HR; Start 06/25/16 at 14:40 Lorazepam (Ativan) 0.5 mg Q8H PRN PO ANXIETY; Start 06/25/16 at 15:00 Ondansetron HCl (Zofran Inj) 4 mg Q6H PRN IV NAUSEA AND/OR VOMITING; Start 01/01 at 15:00 Aspirin (Aspirin) 81 mg DAILY PO Last administered on 06/26/16 08:29; Admin Dose 81 MG; Start 06/26/16 at 09:00 Nitroglycerin (Nitroglycerin (Sl Tab) 0.4 Mg) 1 tab Q5M PRN SL CHEST PAIN; Start 06/25/16 at 15:00 Morphine Sulfate (morphine) 1 mg Q4H PRN IV PAIN LEVEL 7-10; Start 06/25/16 at 15:00 Docusate Sodium (Colace) 100 mg Q12H PRN PO CONSTIPATION; Start 06/25/16 at 15: 00 Bisacodyl (Dulcolax) 5 mg DAILY PRN PO CONSTIPATION; Start 06/25/16 at 15:00 Famotidine (Pepcid) 20 mg Q12 PO Last administered on 06/26/16 08:29; Admin Dose 20 MG; Start 06/25/16 at 21:00 Isosorbide Dinitrate (Isordil) 10 mg TID PO Last administered on 06/26/16 12: 23; Admin Dose 10 MG; Start 06/25/16 at 21:00 Nicotine (Nicoderm 14 Mg/ 24hr) 1 patch DAILY TRANSDERM Last administered on 08:30; Admin Dose 1 PATCH; Start 06/25/16 at 19:00 Acetaminophen (Tylenol Tab) 650 mg Q6H PRN PO PAIN AND OR ELEVATED TEMP Last administered on 06/26/16 09:25; Admin Dose 650 MG; Start 06/26/16 at 09:30 MAYA ALEXANDER MD Jun 26, 2016 16:09
--- NOTE | 2016-06-26 17:39 | RADRPT ---
Echocardiogram Report Patient Name: BALTAZAR RONQUILLO Gender: Male Date: 1950 Study Date: 26-Jun-2016 Residential Collections: Marcia Hernandez [facility] Location: [id number] Ref. Physician: GHULAM CUNNINGHAM Quality: Good Procedures: Transthoracic echocardiogram with complete 2D, M-Mode, and doppler examination. Indications: NSTEMI. 2D/M Mode Doppler Measurement Value Normal Ranges Measurement Value Normal Ranges LVIDd 2D 6.1 3.5 - 5.6 cm AV Peak Mark 1.1 m/sec LVIDs 2D 4.4 2.1 - 4.1 cm AV Peak PG 5.0 mmHg FS 2D 27.4 % LVOT Peak Mark 0.8 m/sec LVPWd 2D 1.2 0.6 - 1.1 cm LVOT Peak PG 3.0 mmHg IVSd 2D 1.1 0.6 - 1.1 cm MV E Peak Mark 0.5 m/sec IVS/LVPW 2D 0.9 MV A Peak Mark 0.8 m/sec AoR Diam 2D 3.0 2.0 - 3.7 cm MV E/A 0.6 LA/Ao 2D 1 0 - 1 MV Decel Time 134 msec EDV 2D 221.0 cm3 MV E/A 0.6 ESV 2D 84.6 cm3 LA Dimen 2D 4.0 2.3 - 4.0 cm Findings Left Ventricle: Mild concentric left ventricular hypertrophy. Mild enlargement of left ventricle cavity. Severe global left ventricular systolic dysfunction. Ejection fraction is visually estimated at 30 %. Tissue Doppler/Mitral Doppler indices are consistent with impaired relaxation (Stage I diastolic dysfunction). Right Ventricle: Normal right ventricular size. Normal right ventricular systolic function. Left Atrium: There is mild enlargement of left atrium. Right Atrium: The right atrium is normal in size. Mitral Valve: Normal appearance and function of the mitral valve with trace physiologic regurgitation. Aortic Valve: Normal appearance of the aortic valve. No significant aortic stenosis or insufficiency. Tricuspid Valve: Normal appearance of the tricuspid valve. Unable to obtain RVSP due to minimal presence of tricuspid regurgitation. Pulmonic Valve: Pulmonic valve not well visualized. Pericardium: Normal pericardium with no significant pericardial effusion. Aorta: Normal aortic root. IVC: Dilated IVC with respiratory collapse consistent with elevated right atrial pressure. Conclusions 1.Mild concentric left ventricular hypertrophy. Mild enlargement of left ventricle cavity. Severe global left ventricular systolic dysfunction. Ejection fraction is visually estimated at 30 %. Tissue Doppler/Mitral Doppler indices are consistent with impaired relaxation (Stage I diastolic dysfunction). 2.Normal appearance of the tricuspid valve. Unable to obtain RVSP due to minimal presence of tricuspid regurgitation. 3.Normal appearance and function of the mitral valve with trace physiologic regurgitation. 4.Normal appearance of the aortic valve. No significant aortic stenosis or insufficiency. Electronically Signed By: Dieter Palomino 26-Jun-2016 17:38:24 -0700 Patient Name: BALTAZAR RONQUILLO Study Date: 26-Jun-2016 [id number]
[2016-06-26 18:07] LABS: HAAIG REFLEX REFLEX FILED
[2016-06-26 18:10] LABS: PLATELET COUNT 64 10^3/UL (140-415)
[2016-06-26 18:23] LABS: LACTATE DEHYDROGENASE 391 IU/L (313-618)
[2016-06-26 18:25] LABS: INR 1.03; PROTIME 13.5 Sec (12.2-14.2); PT RATIO 1.1
[2016-06-26 18:28] LABS: D-DIMER 788.01 ng/ml (<460)
--- NOTE | 2016-06-26 18:29 | RADRPT ---
Vent Rate: 74 bpm RR Interval: 0 msec MI Interval: 178 msec QRS Duration: 158 msec QT Interval: 484 msec QTC Interval: 537 msec P-R-T [place]: 59 - 33 - -4 degrees Normal sinus rhythm Right bundle branch block Abnormal ECG Electronically Signed By: Ina Aquino [id number]
[2016-06-26 18:30] LABS: THROMBIN TIME 14.6 SEC (13.8-19.1)
[2016-06-26 18:36] LABS: FIBRIN SPLIT PRODUCT <10 ug/ml (<10)
[2016-06-26 19:14] LABS: HEPATITIS B CORE ANTIBODY NEGATIVE (NEGATIVE)
[2016-06-26] MEDS: NIACIN 100 MG TAB PO SCH (21:00)
[2016-06-26] MEDS: ATORVASTATIN 20 MG TAB PO SCH (21:03)
[2016-06-27] VITALS (42 sets, daily range): BP systolic 84–146; BP diastolic 46–84; PULSE 62–84; RESP 10–29
[2016-06-27] MEDS: DEXTROSE 5%-0.45% NACL 1,000 ML IV SCH (07:06)
[2016-06-27] MEDS ORDERED: LIDOCAINE 1% (MDV) 20 ML INJ ONE (08:43)
[2016-06-27] MEDS: ASPIRIN 81 MG TAB PO SCH (08:43)
[2016-06-27] MEDS ORDERED: IODIXANOL LOCM 100 ML BTL ONE ×2 (08:43→09:58)
[2016-06-27] MEDS ORDERED: NITROGLYCERIN (IC) 100 MCG/ML INJ ONE (08:43)
[2016-06-27] MEDS ORDERED: VERAPAMIL 5 MG INJ ONE (08:43)
[2016-06-27] MEDS: METOPROLOL (XL) 50 MG TAB PO SCH (08:43)
[2016-06-27] MEDS ORDERED: MIDAZOLAM 1 MG/ML 2 ML INJ ONE (08:44)
[2016-06-27] MEDS: RANOLAZINE (SR) 500 MG TAB PO SCH ×2 (08:50→21:42)
[2016-06-27] MEDS: ISOSORBIDE DINITRATE 10 MG TAB PO SCH ×3 (08:50→21:44)
[2016-06-27] MEDS: FAMOTIDINE 20 MG TAB PO SCH ×2 (08:50→22:42)
[2016-06-27] MEDS: NICOTINE (14 MG/24 HR) PATCH TRANSDERM SCH ×2 (08:51→18:45)
[2016-06-27] MEDS ORDERED: BIVALIRUDIN 250MG /NS 50 ML 50 ML IVPB ONE (09:46)
[2016-06-27] MEDS ORDERED: IODIXANOL LOCM 50 ML BTL ONE (09:58)
[2016-06-27] MEDS ORDERED: CLOPIDOGREL 300 MG TAB ONE (10:00)
[2016-06-27] MEDS ORDERED: ZOLPIDEM 5 MG TAB PO PRN (11:00)
[2016-06-27] MEDS ORDERED: OXYCODONE/ACETAMINOPHEN (5/325) TAB PO PRN (11:00)
[2016-06-27] MEDS ORDERED: morphine 2 MG INJ IV PRN (11:00)
[2016-06-27] MEDS ORDERED: SOD CHLORIDE 0.9% 1,000 ML IV SCH (11:00)
[2016-06-27] MEDS ORDERED: ACETAMINOPHEN 325 MG TAB PO PRN (11:00)
--- NOTE | 2016-06-27 11:05 | CONS ---
Date/Time of Note Date/Time of Note DATE: 06/27/16 TIME: 10:59 Assessment/Plan Assessment/Plan Chief Complaint/Hosp Course IMPRESSION: 1. Positive troponin concerning for non-ST elevation myocardial infarction with mild up trending.-ongoing chest pain. Now post-op mercedes#0 s/p ptca/stent x 1 to LCX with BMS for high grade stenosis 2. Chest pain concerning for acute coronary syndrome. 3. Abnormal electrocardiogram with inferior and lateral T-wave inversions. Assess for acute coronary syndrome. 4. History of percutaneous transluminal coronary angioplasty and stent placement to circumflex, patent by catheterization in July 2015. 5. Dyslipidemia. 6. Hypertension. 7.Thrombocytopenia 8.Cardiomyopathy-LVEF 30% by echo this adnmit Recc: -Tele in ICU overnight -Continue plavix monotherapy anti-platelet agent -Continue statin/BB/ranexa/oral nitrates -Add oneal dose ACEI afterload reduction Problems: Consultation Date/Type/Reason Admit Date/Time Jun 25, 2016 at 14:02 Initial Consult Date 06/26/16 Type of Consultation: Cardiology Reason for Consultation Nstemi Referring Provider: RIO BUENO MD Exam/Review of Systems Vital Signs Vitals Vital Signs Date Time Temp Pulse Resp B/P Pulse Ox O2 Delivery O2 Flow Rate FiO2 06/27/16 08:30 76 18 142/83 93 2.0 06/27/16 04:24 98.5 06/25/16 16:00 Room Air Intake and Output 06/26/16 06/26/16 06/27/16 15:00 23:00 07:00 Intake Total 1000 ml 790 ml Balance 1000 ml 790 ml Exam Review of Systems: CONSTITUTIONAL: No fevers, chills. PULMONARY: No sob CARDIOVASCULAR: intermittent chest pain GASTROINTESTINAL: No nausea/vomiting. GENITOURINARY: No hematuria/dysuria. MUSCULOSKELETAL: No myagias/arthalgias. PSYCHIATRIC: The patient denies depression. NEUROLOGIC: No weakness Constitutional: alert, oriented Psych: no complaints Head: normocephalic ENMT: mucosa pink and moist Neck: jvd (8 cm water), supple Respiratory: diminished breath sounds (at bbases/B) Cardiovascular: regular rate and rhythm Gastrointestinal: non-tender, soft Musculoskeletal: muscle tone (normal) Extremities: other (None) Neurological: other (No focal deficits) Results Result Diagram: 06/26/16 1800 06/26/16 0230 Results 24 hrs Laboratory Tests Test 06/26/16 12:13 06/26/16 18:00 Troponin I 2.650 *H 2.240 *H Platelet Count 64 L Prothrombin Time 13.5 Prothrombin Time Ratio 1.1 INR International Normalized Ratio 1.03 Activated Partial Thromboplast Time 30.0 Thrombin Time 14.6 Fibrinogen 375.0 Plasma Fibrin Degradation Products <10 D-Dimer 788.01 H D-Dimer Comment Lactate Dehydrogenase 391 Hepatitis B Surface Antigen NEGATIVE Hepatitis B Core Total Antibody NEGATIVE Hepatitis C Antibody NEGATIVE HIV (1&2) Antibody NEGATIVE Medications Medications Current Medications Atorvastatin Calcium (Lipitor) 20 mg QHS PO Last administered on 06/26/16 21: 03; Admin Dose 20 MG; Start 06/25/16 at 21:00 Metoprolol Succinate (Toprol Xl) 50 mg DAILY PO Last administered on 06/27/16 08:43; Admin Dose 50 MG; Start 06/26/16 at 09:00 Niacin (Niacin) 100 mg QHS PO ; Start 06/25/16 at 21:00 Ranolazine (Ranexa) 500 mg Q12 PO Last administered on 06/26/16 21:03; Admin Dose 500 MG; Start 06/25/16 at 21:00 Verapamil HCl 120 mg 120 mg DAILY PO ; Start 06/26/16 at 09:00; Status Future Hold Dextrose/Sodium Chloride (D5-1/2ns) 1,000 ml @ 50 mls/hr Q20H IV Last administered on 06/27/16 07:06; Admin Dose 50 MLS/HR; Start 06/25/16 at 14:40 Lorazepam (Ativan) 0.5 mg Q8H PRN PO ANXIETY; Start 06/25/16 at 15:00 Ondansetron HCl (Zofran Inj) 4 mg Q6H PRN IV NAUSEA AND/OR VOMITING; Start 01/01 at 15:00 Aspirin (Aspirin) 81 mg DAILY PO Last administered on 06/27/16 08:43; Admin Dose 81 MG; Start 06/26/16 at 09:00 Nitroglycerin (Nitroglycerin (Sl Tab) 0.4 Mg) 1 tab Q5M PRN SL CHEST PAIN; Start 06/25/16 at 15:00 Morphine Sulfate (morphine) 1 mg Q4H PRN IV PAIN LEVEL 7-10; Start 06/25/16 at 15:00 Docusate Sodium (Colace) 100 mg Q12H PRN PO CONSTIPATION; Start 06/25/16 at 15: 00 Bisacodyl (Dulcolax) 5 mg DAILY PRN PO CONSTIPATION; Start 06/25/16 at 15:00 Famotidine (Pepcid) 20 mg Q12 PO Last administered on 06/26/16 21:03; Admin Dose 20 MG; Start 06/25/16 at 21:00 Isosorbide Dinitrate (Isordil) 10 mg TID PO Last administered on 06/26/16 21: 03; Admin Dose 10 MG; Start 06/25/16 at 21:00 Nicotine (Nicoderm 14 Mg/ 24hr) 1 patch DAILY TRANSDERM Last administered on 08:30; Admin Dose 1 PATCH; Start 06/25/16 at 19:00 Acetaminophen (Tylenol Tab) 650 mg Q6H PRN PO PAIN AND OR ELEVATED TEMP Last administered on 06/26/16 21:10; Admin Dose 650 MG; Start 06/26/16 at 09:30 Miscellaneous Information (* Miscellaneous Pharmacy Order) Hold all Metformin ... ONCE XX ; Start 06/27/16 at 11:00; Stop 06/29/16 at 10:59 Clopidogrel Bisulfate (plaVIX) 75 mg DAILY PO ; Start 06/28/16 at 09:00 Acetaminophen (Tylenol Tab) 650 mg Q4H PRN PO NON-CARDIAC PAIN LEVEL 1-3; Start 06/27/16 at 11:00 Oxycodone/ Acetaminophen (Percocet (5/ 325)) 1 tab Q4H PRN PO REPORTED NON- CARDIAC PAIN 4-7; Start 06/27/16 at 11:00 Morphine Sulfate 1 mg 1 mg Q1H PRN IV PAIN NOT RELIEVED BY OTHERS; Start at 11:00 Sodium Chloride (NS) 1,000 ml @ 75 mls/hr [id number] IV ; Start 06/27/16 at 11:00 ; Stop 06/28/16 at 00:19 GHULAM CUNNINGHAM Jun 27, 2016 11:05
--- NOTE | 2016-06-27 12:07 | CARRPT ---
DATE OF PROCEDURE: 06/27/2016 TYPE OF PROCEDURE: 1. Left heart catheterization. 2. Coronary angiography. 3. Measurement of left ventricular end diastolic pressure. 4. Percutaneous transluminal coronary angioplasty with placement of Revel bare metal stent x1, 3.5 x 16 mm to mid circumflex. ATTENDING PHYSICIAN: Ghulam Hernandez MD REFERRING PHYSICIAN: Dr. Burk, hospitalist service INDICATION: Non-ST elevation myocardial infarction. TYPE OF ANESTHESIA: Conscious and local. BRIEF HISTORY AND HOSPITAL COURSE: Mr. Horowitz is a 66-year-old male with a history of hypertension , dyslipidemia, coronary artery disease, status post prior PTCA and stent placement, who initially p resented with complaints of substernal chest pain and ruled in for non-ST elevation myocardial infar ction. The patient subsequently was placed on medical therapy, continued to have chest pain, he was brought to the cardiac catheterization lab in order to assess for the possibility of recurrent sign ificant obstructive coronary artery disease lending to symptoms of chest pain and subsequent non-ST elevation myocardial infarction. PROCEDURE: After informed consent was obtained, the patient was brought to the [facility] cardiac catheterization lab where his right radial area was prepped and draped in usual kiesha rile fashion. Lidocaine 2% was infiltrated into the right radial area in order to achieve adequate local anesthesia. Using modified Seldinger technique the radial artery was cannulated and a 6-Frenc h arterial sheath was placed. A 6-Luxembourgish JL3.5 catheter was used to cannulate the left main coronar y ostium. With contrast injection, multiple views of the left coronary arterial system were obtaine d, JL3.5 mm guidewire and a JR4 was used to cannulate the right coronary arterial ostium. With cont rast injection, multiple views of the right coronary arterial system obtained. JR4 was removed afte r being used additionally across the aortic valve and placed in the LV and pulled back across the ao rtic valve to assess for significant gradient was removed. Subsequently, at this time, given the fi nding of significant obstructive lesion in the circumflex vessel, we moved directly into an interven tional procedure. The patient was given Angiomax bolus continuous infusion. An XB 3 guide was used to cannulate the left main coronary ostium. A 0.014 balance middleweight guidewire was passed dist al to the lesion and the lesion was pretreated with a 3.0 x 12 mm balloon up to 14 to 16 atmospheres were removed and subsequently stented with a 3.5 x 16 mm bare metal stent deployed at 16 atmosphere s, post-dilated up to 16 atmospheres and stent delivery system was removed. Subsequently, at this t lee due to small waste in the midportion of the stent where the tightest portion of the stenosis had existed, a noncompliant was used to further post dilate this stent and that was a 4.0 x 8 mm, a 6 m m was used to post-dilate it up to 16 atmospheres x2 and removed. Followup angiogram was obtained r evealing excellent result deployment of the stent. No residual waste, ABDULLAHI 3 flow throughout the ve ssel, no signs of complication including perforation or dissection. Additionally noted that there w as a small branch bifurcating midway through the lesion that remained patent with good flow. Subsequently at this time, the patient's stent delivery system was removed. The patient's guides an d guidewires were removed. The patient's sheath was being removed, a TR band was applied. This com pleted the procedure. No noted complications. FINDINGS: Coronary angiography. Right coronary artery proximally is a 3.5 mm vessel and its mid portion has s tenoses up to approximately 30% to 40%. The right coronary artery is a dominant vessel, it gives of f a 3 mm PDA with an ostial 50% stenosis, very focal and a 3 mm posterolateral branch with luminal i rregularities up to 20%. The left main proximally is 4 mm vessel with no significant focal stenoses . The LAD proximally is a 3.5 mm vessel and has a patent stent in its proximal portion with an area of stenosis likely just distal stent eccentric up to approximately 50% to 60%. The circumflex prox imally is a 3.5 mm vessel and in its midportion has a widely patent stent and then has a 95% stenosi s, very focal. There are mid branching distal branching obtuse marginals 2.5 proximally and 3 dist al, each with no significant focal stenosis. Measurement of left ventricular end diastolic pressure 18 to 19 with no significant aortic stenosis by gradient. PTCA and stent placement: Prior to PTCA and stent placement, the patient had a 95% stenosis. Post- PTCA and stent placement, the patient had no residual stenosis, ABDULLAHI 3 flow throughout the vessel, n o signs of complication including perforation or dissection. TOTAL FLUOROSCOPY TIME: 11.3 minutes. TOTAL CONTRAST: 120 mL. IMPRESSION: 1. Single vessel obstructive coronary artery disease involving a very high-grade lesion in the juan ent's mid circumflex, status post successful PTCA and stent placement with bare metal stent x1. 2. Widely patent proximal circumflex and questionable proximal LAD stents. 3. Mildly elevated left heart filling pressures. 4. No significant aortic stenosis by gradient. RECOMMENDATIONS: In light of procedure findings at this time would: 1. Maximize medical management. 2. Aggressive risk factor reduction. 3. The patient will be readmitted to the ICU for post-intervention observation and continued manage ment of symptoms with probable discharge the following day. 4. Patient will be maintained on Plavix 75 mg 1 tab p.o. daily, with likely no aspirin given the si gnificant severe thrombocytopenia. Dictated By: GUHLAM CHANEL/RUPERTO Conf#: [id number] DID#: [id number]
--- NOTE | 2016-06-27 17:24 | CONS ---
Date/Time of Note Date/Time of Note DATE: 06/27/16 TIME: 17:12 Assessment/Plan Assessment/Plan Chief Complaint/Hosp Course The patient is a 66-year-old gentleman with past medical history of hypertension , dyslipidemia, coronary artery disease status post PCI x2 and thrombocytopenia positive troponins concerning for non-ST elevation myocardial infarction. Patient underwent cardiac cath 06/27/16 revealing single vessel obstructive coronary artery disease involving a very high-grade lesion in the patient's mid circumflex, status post successful PTCA and stent placement with bare metal stent x1. 2. Widely patent proximal circumflex and questionable proximal LAD stents. 3. Mildly elevated left heart filling pressures. 4. No significant aortic stenosis by gradient. - Per chart review, he appears to have a history of thrombocytopenia, chronic, without evidence of bleeding. No obvious offending medications. - Peripheral smear reviewed by Dr. Sanchez and showed decreased platelets, no blasts, rare large platelets, no schistocytes. - WBC and Hgb normal and no evidence of blasts with chronic history arguing against acute leukemia or microangiopathic process. LDH within normal limits. DIC panel, HIV and hepatitis panel are negative. Patient may have chronic ITP not requiring intervention although platelets are not particularly enlarged except for rare large platelets. Patient also may have an inherited platelet disorder based on family history, although again usually MPV significantly elevated indicating large platelets. - Patient can follow up with me upon discharge if patient desires - As long as platelets remain above 50, there is no contraindication to antiplatelet or anticoagulant therapies. Will continue to monitor. Problems: Consultation Date/Type/Reason Admit Date/Time Jun 25, 2016 at 14:02 Initial Consult Date 06/26/16 Type of Consultation: Cardiology Referring Provider: RIO BUENO MD 24 HR Interval Summary Free Text/Dictation Patient status post cardiac cath, doing well. Exam/Review of Systems Vital Signs Vitals Vital Signs Date Time Temp Pulse Resp B/P Pulse Ox O2 Delivery O2 Flow Rate FiO2 06/27/16 16:44 72 06/27/16 16:15 20 121/74 96 Room Air 06/27/16 10:52 98.0 06/27/16 08:30 2.0 Intake and Output 06/26/16 06/26/16 06/27/16 15:00 23:00 07:00 Intake Total 1000 ml 790 ml Balance 1000 ml 790 ml Exam Constitutional: alert, oriented Psych: no complaints Head: normocephalic Eyes: nl conjunctiva Neck: supple Respiratory: clear to auscultation Cardiovascular: regular rate and rhythm Gastrointestinal: non-tender, soft Musculoskeletal: nl extremities to inspection Results Result Diagram: 06/26/16 1800 06/26/16 0230 Results 24 hrs Laboratory Tests Test 06/26/16 18:00 Platelet Count 64 L Prothrombin Time 13.5 Prothrombin Time Ratio 1.1 INR International Normalized Ratio 1.03 Activated Partial Thromboplast Time 30.0 Thrombin Time 14.6 Fibrinogen 375.0 Plasma Fibrin Degradation Products <10 D-Dimer 788.01 H D-Dimer Comment Lactate Dehydrogenase 391 Troponin I 2.240 *H Hepatitis B Surface Antigen NEGATIVE Hepatitis B Core Total Antibody NEGATIVE Hepatitis C Antibody NEGATIVE HIV (1&2) Antibody NEGATIVE Medications Medications Current Medications Atorvastatin Calcium (Lipitor) 20 mg QHS PO Last administered on 06/26/16 21: 03; Admin Dose 20 MG; Start 06/25/16 at 21:00 Metoprolol Succinate (Toprol Xl) 50 mg DAILY PO Last administered on 06/27/16 08:43; Admin Dose 50 MG; Start 06/26/16 at 09:00 Ranolazine (Ranexa) 500 mg Q12 PO Last administered on 06/26/16 21:03; Admin Dose 500 MG; Start 06/25/16 at 21:00 Verapamil HCl 120 mg 120 mg DAILY PO ; Start 06/26/16 at 09:00; Status Future Hold Dextrose/Sodium Chloride (D5-1/2ns) 1,000 ml @ 50 mls/hr Q20H IV Last administered on 06/27/16 07:06; Admin Dose 50 MLS/HR; Start 06/25/16 at 14:40 Lorazepam (Ativan) 0.5 mg Q8H PRN PO ANXIETY; Start 06/25/16 at 15:00 Ondansetron HCl (Zofran Inj) 4 mg Q6H PRN IV NAUSEA AND/OR VOMITING; Start 01/01 at 15:00 Aspirin (Aspirin) 81 mg DAILY PO Last administered on 06/27/16 08:43; Admin Dose 81 MG; Start 06/26/16 at 09:00 Nitroglycerin (Nitroglycerin (Sl Tab) 0.4 Mg) 1 tab Q5M PRN SL CHEST PAIN; Start 06/25/16 at 15:00 Morphine Sulfate (morphine) 1 mg Q4H PRN IV PAIN LEVEL 7-10; Start 06/25/16 at 15:00 Docusate Sodium (Colace) 100 mg Q12H PRN PO CONSTIPATION; Start 06/25/16 at 15: 00 Bisacodyl (Dulcolax) 5 mg DAILY PRN PO CONSTIPATION; Start 06/25/16 at 15:00 Famotidine (Pepcid) 20 mg Q12 PO Last administered on 06/26/16 21:03; Admin Dose 20 MG; Start 06/25/16 at 21:00 Isosorbide Dinitrate (Isordil) 10 mg TID PO Last administered on 06/27/16 13: 19; Admin Dose 10 MG; Start 06/25/16 at 21:00 Nicotine (Nicoderm 14 Mg/ 24hr) 1 patch DAILY TRANSDERM Last administered on 08:30; Admin Dose 1 PATCH; Start 06/25/16 at 19:00 Acetaminophen (Tylenol Tab) 650 mg Q6H PRN PO PAIN AND OR ELEVATED TEMP Last administered on 06/26/16 21:10; Admin Dose 650 MG; Start 06/26/16 at 09:30 Miscellaneous Information (* Miscellaneous Pharmacy Order) Hold all Metformin ... ONCE XX ; Start 06/27/16 at 11:00; Stop 06/29/16 at 10:59 Clopidogrel Bisulfate (plaVIX) 75 mg DAILY PO ; Start 06/28/16 at 09:00 Acetaminophen (Tylenol Tab) 650 mg Q4H PRN PO NON-CARDIAC PAIN LEVEL 1-3; Start 06/27/16 at 11:00 Oxycodone/ Acetaminophen (Percocet (5/ 325)) 1 tab Q4H PRN PO REPORTED NON- CARDIAC PAIN 4-7; Start 06/27/16 at 11:00 Morphine Sulfate 1 mg 1 mg Q1H PRN IV PAIN NOT RELIEVED BY OTHERS; Start at 11:00 Sodium Chloride (NS) 1,000 ml @ 75 mls/hr [id number] IV ; Start 06/27/16 at 11:00 ; Stop 06/28/16 at 00:19 Lisinopril (Zestril) 5 mg DAILY PO ; Start 06/28/16 at 09:00 Niacin (Niacin) 100 mg QHS PO ; Start 06/27/16 at 21:00 TOMAYA MD Jun 27, 2016 17:23
[2016-06-27 18:08] LABS: ADD SCAN DIFF NO
[2016-06-27 18:13] LABS: ABNORMAL IP MESSAGE 1; BASOPHIL # 0.1 10^3/ul (0.0-0.1); BASOPHILS % 0.5 % (0.0-2.0); EOSINOPHILS # 0.1 10^3/ul (0.0-0.5); EOSINOPHILS % 0.6 % (0.0-7.0); HEMATOCRIT 46.8 % (42.0-52.0); LYMPHOCYTES # 2.8 10^3/ul (0.8-2.9); LYMPHOCYTES % 26.9 % (15.0-51.0); MEAN CORPUSCULAR HEMOGLOBIN 31.1 pg (29.0-33.0); MEAN CORPUSCULAR HGB CONC 34.2 g/dl (32.0-37.0); MEAN CORPUSCULAR VOLUME 90.9 fl (82.0-101.0); MEAN PLATELET VOLUME 14.5 fl (7.4-10.4); MONOCYTE # 0.9 10^3/ul (0.3-0.9); MONOCYTES % 8.4 % (0.0-11.0); NEUTROPHIL # 6.5 10^3/ul (1.6-7.5); NEUTROPHILS % 62.8 % (39.0-77.0); PLATELET COUNT 72 10^3/UL (140-415); RED BLOOD COUNT 5.15 10^6/ul (4.70-6.10); WHITE BLOOD COUNT 10.3 10^3/ul (4.8-10.8)
[2016-06-27 18:25] LABS: ALBUMIN 4.1 g/dl (3.3-4.9); ALBUMIN/GLOBULIN RATIO 1.32; BILIRUBIN,INDIRECT 0.6 mg/dl (0-1.1); BILIRUBIN,TOTAL 0.6 mg/dl (0.2-1.3); CALCIUM 9.1 mg/dl (8.4-10.2); CREATININE 0.84 mg/dl (0.61-1.24); TOTAL PROTEIN 7.2 g/dl (6.1-8.1)
[2016-06-27] MEDS ORDERED: NIACIN 50 MG TAB PO SCH (21:00)
[2016-06-27] MEDS: ATORVASTATIN 20 MG TAB PO SCH (21:43)
[2016-06-28] VITALS (8 sets, daily range): BP systolic 108–126; BP diastolic 66–75; PULSE 71–89; RESP 16–18
[2016-06-28] MEDS: DEXTROSE 5%-0.45% NACL 1,000 ML IV SCH (04:04)
[2016-06-28 08:07] LABS: ADD SCAN DIFF NO
[2016-06-28 08:09] LABS: ABNORMAL IP MESSAGE 1; BASOPHIL # 0.1 10^3/ul (0.0-0.1); BASOPHILS % 0.5 % (0.0-2.0); EOSINOPHILS # 0.1 10^3/ul (0.0-0.5); HEMATOCRIT 45.5 % (42.0-52.0); HEMOGLOBIN 15.2 g/dl (14.0-18.0); LYMPHOCYTES % 29.9 % (15.0-51.0); MEAN CORPUSCULAR HEMOGLOBIN 30.8 pg (29.0-33.0); MEAN CORPUSCULAR HGB CONC 33.4 g/dl (32.0-37.0); MEAN CORPUSCULAR VOLUME 92.1 fl (82.0-101.0); MONOCYTE # 0.7 10^3/ul (0.3-0.9); MONOCYTES % 6.9 % (0.0-11.0); NEUTROPHILS % 60.8 % (39.0-77.0); PLATELET COUNT 65 10^3/UL (140-415); RED BLOOD COUNT 4.94 10^6/ul (4.70-6.10); RED CELL DISTRIBUTION WIDTH 13.1 % (11.5-14.5); WHITE BLOOD COUNT 9.9 10^3/ul (4.8-10.8)
[2016-06-28 08:40] LABS: POTASSIUM 3.8 mmol/L (3.5-5.1)
[2016-06-28 08:42] LABS: CREATININE 0.92 mg/dl (0.61-1.24)
[2016-06-28 08:43] LABS: CALCIUM 8.9 mg/dl (8.4-10.2)
[2016-06-28 08:45] LABS: ALBUMIN 3.8 g/dl (3.3-4.9)
[2016-06-28 08:46] LABS: POTASSIUM 3.5 mmol/L (3.5-5.1)
[2016-06-28] MEDS: NICOTINE (14 MG/24 HR) PATCH TRANSDERM SCH (08:46)
[2016-06-28] MEDS: ASPIRIN 81 MG TAB PO SCH (08:46)
[2016-06-28] MEDS: ISOSORBIDE DINITRATE 10 MG TAB PO SCH ×2 (08:47→12:29)
[2016-06-28] MEDS: FAMOTIDINE 20 MG TAB PO SCH (08:47)
[2016-06-28] MEDS: RANOLAZINE (SR) 500 MG TAB PO SCH (08:47)
[2016-06-28 08:48] LABS: ALBUMIN/GLOBULIN RATIO 1.22; BILIRUBIN,INDIRECT 0.8 mg/dl (0-1.1); BILIRUBIN,TOTAL 0.8 mg/dl (0.2-1.3); CALCIUM 8.8 mg/dl (8.4-10.2); CREATININE 1.02 mg/dl (0.61-1.24); TOTAL PROTEIN 6.9 g/dl (6.1-8.1)
[2016-06-28] MEDS: METOPROLOL (XL) 50 MG TAB PO SCH (08:48)
[2016-06-28] MEDS ORDERED: LISINOPRIL 5 MG TAB PO SCH (09:00)
[2016-06-28] MEDS ORDERED: CLOPIDOGREL 75 MG TAB PO SCH (09:00)
--- NOTE | 2016-06-28 13:13 | PDOCDIS ---
Discharge Instructions CONDITION Patient Condition: Good HOME CARE INSTRUCTIONS: Special Diet: Cardiac Diet ACTIVITY: Activity Restrictions: No Restrictions FOLLOW UP/APPOINTMENTS Appointments Follow up with Cardiology as out-pt Follow up with PCP as out-pt Follow up with Dr. Barbie Alcaraz as out-pt RIO BUENO MD Jun 28, 2016 13:13
[2016-06-28] MEDS ORDERED: ISOS10TA2 PO (13:20)
[2016-06-28] MEDS ORDERED: NIT4 SL (13:20)
[2016-06-28] MEDS ORDERED: Nicotine (14 Mg/24 Hr) TRANSDERM (13:20)
[2016-06-28] MEDS ORDERED: CLOP75TA28 PO (13:20)
[2016-06-28] MEDS ORDERED: LISI-313 PO (13:20)
[2016-06-28] MEDS ORDERED: FAMO20TA18 PO (13:20)
--- NOTE | 2016-06-28 13:53 | CONS ---
Date/Time of Note Date/Time of Note DATE: 06/28/16 TIME: 13:52 Assessment/Plan Assessment/Plan Chief Complaint/Hosp Course The patient is a 66-year-old gentleman with past medical history of hypertension , dyslipidemia, coronary artery disease status post PCI x2 and thrombocytopenia positive troponins concerning for non-ST elevation myocardial infarction. Patient underwent cardiac cath 06/27/16 revealing single vessel obstructive coronary artery disease involving a very high-grade lesion in the patient's mid circumflex, status post successful PTCA and stent placement with bare metal stent x1. 2. Widely patent proximal circumflex and questionable proximal LAD stents. 3. Mildly elevated left heart filling pressures. 4. No significant aortic stenosis by gradient. - Per chart review, he appears to have a history of thrombocytopenia, chronic, without evidence of bleeding. No obvious offending medications. - Peripheral smear reviewed by Dr. Sanchez and showed decreased platelets, no blasts, rare large platelets, no schistocytes. - WBC and Hgb normal and no evidence of blasts with chronic history arguing against acute leukemia or microangiopathic process. LDH within normal limits. DIC panel, HIV and hepatitis panel are negative. Patient may have chronic ITP not requiring intervention although platelets are not particularly enlarged except for rare large platelets. Patient also may have an inherited platelet disorder based on family history, although again usually MPV significantly elevated indicating large platelets. - Patient can follow up with me upon discharge if patient desires - As long as platelets remain above 50, there is no contraindication to antiplatelet or anticoagulant therapies. Will continue to monitor. - Patient will follow up with me after discharge and contact my office for an appointment. Problems: Consultation Date/Type/Reason Admit Date/Time Jun 25, 2016 at 14:02 Initial Consult Date 06/26/16 Type of Consultation: Hematology Referring Provider: RIO BUENO MD 24 HR Interval Summary Free Text/Dictation Patient discharged home prior to being seen today. Exam/Review of Systems Vital Signs Vitals Vital Signs Date Time Temp Pulse Resp B/P Pulse Ox O2 Delivery O2 Flow Rate FiO2 06/28/16 12:06 89 06/28/16 11:50 98.8 18 108/68 94 06/28/16 08:10 2.0 06/27/16 16:45 Room Air Intake and Output 06/27/16 06/27/16 06/28/16 15:00 23:00 07:00 Intake Total 250 ml Balance 250 ml Results Result Diagram: 06/28/16 0725 06/28/16 0725 Results 24 hrs Laboratory Tests Test 06/27/16 18:00 06/28/16 07:25 White Blood Count 10.3 9.9 Red Blood Count 5.15 4.94 Hemoglobin 16.0 15.2 Hematocrit 46.8 45.5 Mean Corpuscular Volume 90.9 92.1 Mean Corpuscular Hemoglobin 31.1 30.8 Mean Corpuscular Hemoglobin Concent 34.2 33.4 Red Cell Distribution Width 13.0 13.1 Platelet Count 72 L 65 L Mean Platelet Volume 14.5 #H Neutrophils % 62.8 60.8 Lymphocytes % 26.9 29.9 Monocytes % 8.4 6.9 Eosinophils % 0.6 1.0 Basophils % 0.5 0.5 Nucleated Red Blood Cells % 0.0 0.0 Neutrophils # 6.5 6.0 Lymphocytes # 2.8 3.0 H Monocytes # 0.9 0.7 Eosinophils # 0.1 0.1 Basophils # 0.1 0.1 Nucleated Red Blood Cells # 0.0 0.0 Sodium Level 138 138 Potassium Level 4.0 3.5 Chloride Level 107 102 Carbon Dioxide Level 24 26 Anion Gap 11 14 Blood Urea Nitrogen 11 10 Creatinine 0.84 1.02 Glucose Level 71 111 Calcium Level 9.1 8.8 Total Bilirubin 0.6 0.8 Direct Bilirubin 0.00 0.00 Indirect Bilirubin 0.6 0.8 Aspartate Amino Transf (AST/SGOT) 39 41 Alanine Aminotransferase (ALT/SGPT) 42 38 Alkaline Phosphatase 76 69 Total Protein 7.2 6.9 Albumin 4.1 3.8 Globulin 3.10 3.10 Albumin/Globulin Ratio 1.32 1.22 Medications Medications Current Medications Atorvastatin Calcium (Lipitor) 20 mg QHS PO Last administered on 06/27/16 21: 43; Admin Dose 20 MG; Start 06/25/16 at 21:00 Metoprolol Succinate (Toprol Xl) 50 mg DAILY PO Last administered on 06/28/16 08:48; Admin Dose 50 MG; Start 06/26/16 at 09:00 Ranolazine (Ranexa) 500 mg Q12 PO Last administered on 06/28/16 08:47; Admin Dose 500 MG; Start 06/25/16 at 21:00 Verapamil HCl 120 mg 120 mg DAILY PO ; Start 06/26/16 at 09:00; Status Future Hold Dextrose/Sodium Chloride (D5-1/2ns) 1,000 ml @ 50 mls/hr Q20H IV Last administered on 06/28/16 04:04; Admin Dose 50 MLS/HR; Start 06/25/16 at 14:40 Lorazepam (Ativan) 0.5 mg Q8H PRN PO ANXIETY; Start 06/25/16 at 15:00 Ondansetron HCl (Zofran Inj) 4 mg Q6H PRN IV NAUSEA AND/OR VOMITING; Start 01/01 at 15:00 Aspirin (Aspirin) 81 mg DAILY PO Last administered on 06/28/16 08:46; Admin Dose 81 MG; Start 06/26/16 at 09:00 Nitroglycerin (Nitroglycerin (Sl Tab) 0.4 Mg) 1 tab Q5M PRN SL CHEST PAIN; Start 06/25/16 at 15:00 Morphine Sulfate (morphine) 1 mg Q4H PRN IV PAIN LEVEL 7-10 Last administered on 06/27/16 22:43; Admin Dose 1 MG; Start 06/25/16 at 15:00 Docusate Sodium (Colace) 100 mg Q12H PRN PO CONSTIPATION; Start 06/25/16 at 15: 00 Bisacodyl (Dulcolax) 5 mg DAILY PRN PO CONSTIPATION; Start 06/25/16 at 15:00 Famotidine (Pepcid) 20 mg Q12 PO Last administered on 06/28/16 08:47; Admin Dose 20 MG; Start 06/25/16 at 21:00 Isosorbide Dinitrate (Isordil) 10 mg TID PO Last administered on 06/28/16 08: 47; Admin Dose 10 MG; Start 06/25/16 at 21:00 Nicotine (Nicoderm 14 Mg/ 24hr) 1 patch DAILY TRANSDERM Last administered on 08:46; Admin Dose 1 PATCH; Start 06/25/16 at 19:00 Acetaminophen (Tylenol Tab) 650 mg Q6H PRN PO PAIN AND OR ELEVATED TEMP Last administered on 06/26/16 21:10; Admin Dose 650 MG; Start 06/26/16 at 09:30 Miscellaneous Information (* Miscellaneous Pharmacy Order) Hold all Metformin ... ONCE XX ; Start 06/27/16 at 11:00; Stop 06/29/16 at 10:59 Clopidogrel Bisulfate (plaVIX) 75 mg DAILY PO Last administered on 06/28/16 08 :46; Admin Dose 75 MG; Start 06/28/16 at 09:00 Acetaminophen (Tylenol Tab) 650 mg Q4H PRN PO NON-CARDIAC PAIN LEVEL 1-3; Start 06/27/16 at 11:00 Oxycodone/ Acetaminophen (Percocet (5/ 325)) 1 tab Q4H PRN PO REPORTED NON- CARDIAC PAIN 4-7; Start 06/27/16 at 11:00 Morphine Sulfate (morphine) 1 mg Q1H PRN IV PAIN NOT RELIEVED BY OTHERS; Start 06/27/16 at 11:00 Lisinopril (Zestril) 5 mg DAILY PO Last administered on 06/28/16 08:47; Admin Dose 5 MG; Start 06/28/16 at 09:00 Niacin (Niacin) 100 mg QHS PO Last administered on 06/27/16 21:43; Admin Dose 100 MG; Start 06/27/16 at 21:00 TOMAYA MD Jun 28, 2016 13:53 100 MG; Start 06/27/16 at 21:00 TOMAYA MD Jun 28, 2016 13:53
--- NOTE | 2016-06-28 14:07 | CONS ---
Date/Time of Note Date/Time of Note DATE: 06/28/16 TIME: 14:03 Assessment/Plan Assessment/Plan Chief Complaint/Hosp Course IMPRESSION: 1. Positive troponin concerning for non-ST elevation myocardial infarction with mild up trending.-ongoing chest pain. Now post-op mercedes#1 s/p ptca/stent x 1 to LCX with BMS for high grade stenosis 2. Chest pain concerning for acute coronary syndrome. 3. Abnormal electrocardiogram with inferior and lateral T-wave inversions. Assess for acute coronary syndrome. 4. History of percutaneous transluminal coronary angioplasty and stent placement to circumflex, patent by catheterization in July 2015. 5. Dyslipidemia. 6. Hypertension. 7.Thrombocytopenia 8.Cardiomyopathy-LVEF 30% by echo this adnmit Recc: -Tele in ICU overnight -Continue plavix with asa 81 mg and follow for any bleeding complications as per heme ok to use dual antiplatelet therapy if plt>50K(today 67k) -Continue statin/BB/ranexa/ACEI -May require low dose lasix as well -outpatient f/u 1-2 weeks Problems: Consultation Date/Type/Reason Admit Date/Time Jun 25, 2016 at 14:02 Initial Consult Date 06/26/16 Type of Consultation: Cardiology Reason for Consultation Nstemi Referring Provider: RIO BUENO MD Exam/Review of Systems Vital Signs Vitals Vital Signs Date Time Temp Pulse Resp B/P Pulse Ox O2 Delivery O2 Flow Rate FiO2 06/28/16 12:06 89 06/28/16 11:50 98.8 18 108/68 94 06/28/16 08:10 2.0 06/27/16 16:45 Room Air Intake and Output 06/27/16 06/27/16 06/28/16 15:00 23:00 07:00 Intake Total 250 ml Balance 250 ml Exam Review of Systems: CONSTITUTIONAL: No fevers, chills. PULMONARY: No sob CARDIOVASCULAR: No chest pain/palpitations GASTROINTESTINAL: No nausea/vomiting. GENITOURINARY: No hematuria/dysuria. MUSCULOSKELETAL: No myagias/arthalgias. PSYCHIATRIC: The patient denies depression. NEUROLOGIC: No weakness Constitutional: alert, oriented Psych: no complaints Head: normocephalic ENMT: mucosa pink and moist Neck: jvd (8 cm water), supple Respiratory: clear to auscultation Cardiovascular: regular rate and rhythm Gastrointestinal: non-tender, soft Musculoskeletal: muscle tone (normal) Extremities: other (R arm no sig swelling/pain/ecchymosi/palpable radial pulse easily) Results Result Diagram: 06/28/1672406/28/16 0725 Results 24 hrs Laboratory Tests Test 06/27/16 18:00 06/28/16 07:25 White Blood Count 10.3 9.9 Red Blood Count 5.15 4.94 Hemoglobin 16.0 15.2 Hematocrit 46.8 45.5 Mean Corpuscular Volume 90.9 92.1 Mean Corpuscular Hemoglobin 31.1 30.8 Mean Corpuscular Hemoglobin Concent 34.2 33.4 Red Cell Distribution Width 13.0 13.1 Platelet Count 72 L 65 L Mean Platelet Volume 14.5 #H Neutrophils % 62.8 60.8 Lymphocytes % 26.9 29.9 Monocytes % 8.4 6.9 Eosinophils % 0.6 1.0 Basophils % 0.5 0.5 Nucleated Red Blood Cells % 0.0 0.0 Neutrophils # 6.5 6.0 Lymphocytes # 2.8 3.0 H Monocytes # 0.9 0.7 Eosinophils # 0.1 0.1 Basophils # 0.1 0.1 Nucleated Red Blood Cells # 0.0 0.0 Sodium Level 138 138 Potassium Level 4.0 3.5 Chloride Level 107 102 Carbon Dioxide Level 24 26 Anion Gap 11 14 Blood Urea Nitrogen 11 10 Creatinine 0.84 1.02 Glucose Level 71 111 Calcium Level 9.1 8.8 Total Bilirubin 0.6 0.8 Direct Bilirubin 0.00 0.00 Indirect Bilirubin 0.6 0.8 Aspartate Amino Transf (AST/SGOT) 39 41 Alanine Aminotransferase (ALT/SGPT) 42 38 Alkaline Phosphatase 76 69 Total Protein 7.2 6.9 Albumin 4.1 3.8 Globulin 3.10 3.10 Albumin/Globulin Ratio 1.32 1.22 Medications Medications Current Medications Atorvastatin Calcium (Lipitor) 20 mg QHS PO Last administered on 06/27/16 21: 43; Admin Dose 20 MG; Start 06/25/16 at 21:00 Metoprolol Succinate (Toprol Xl) 50 mg DAILY PO Last administered on 06/28/16 08:48; Admin Dose 50 MG; Start 06/26/16 at 09:00 Ranolazine (Ranexa) 500 mg Q12 PO Last administered on 06/28/16 08:47; Admin Dose 500 MG; Start 06/25/16 at 21:00 Verapamil HCl 120 mg 120 mg DAILY PO ; Start 06/26/16 at 09:00; Status Future Hold Dextrose/Sodium Chloride (D5-1/2ns) 1,000 ml @ 50 mls/hr Q20H IV Last administered on 06/28/16 04:04; Admin Dose 50 MLS/HR; Start 06/25/16 at 14:40 Lorazepam (Ativan) 0.5 mg Q8H PRN PO ANXIETY; Start 06/25/16 at 15:00 Ondansetron HCl (Zofran Inj) 4 mg Q6H PRN IV NAUSEA AND/OR VOMITING; Start 01/01 at 15:00 Aspirin (Aspirin) 81 mg DAILY PO Last administered on 06/28/16 08:46; Admin Dose 81 MG; Start 06/26/16 at 09:00 Nitroglycerin (Nitroglycerin (Sl Tab) 0.4 Mg) 1 tab Q5M PRN SL CHEST PAIN; Start 06/25/16 at 15:00 Morphine Sulfate (morphine) 1 mg Q4H PRN IV PAIN LEVEL 7-10 Last administered on 06/27/16 22:43; Admin Dose 1 MG; Start 06/25/16 at 15:00 Docusate Sodium (Colace) 100 mg Q12H PRN PO CONSTIPATION; Start 06/25/16 at 15: 00 Bisacodyl (Dulcolax) 5 mg DAILY PRN PO CONSTIPATION; Start 06/25/16 at 15:00 Famotidine (Pepcid) 20 mg Q12 PO Last administered on 06/28/16 08:47; Admin Dose 20 MG; Start 06/25/16 at 21:00 Isosorbide Dinitrate (Isordil) 10 mg TID PO Last administered on 06/28/16 08: 47; Admin Dose 10 MG; Start 06/25/16 at 21:00 Nicotine (Nicoderm 14 Mg/ 24hr) 1 patch DAILY TRANSDERM Last administered on 08:46; Admin Dose 1 PATCH; Start 06/25/16 at 19:00 Acetaminophen (Tylenol Tab) 650 mg Q6H PRN PO PAIN AND OR ELEVATED TEMP Last administered on 06/26/16 21:10; Admin Dose 650 MG; Start 06/26/16 at 09:30 Miscellaneous Information (* Miscellaneous Pharmacy Order) Hold all Metformin ... ONCE XX ; Start 06/27/16 at 11:00; Stop 06/29/16 at 10:59 Clopidogrel Bisulfate (plaVIX) 75 mg DAILY PO Last administered on 06/28/16 08 :46; Admin Dose 75 MG; Start 06/28/16 at 09:00 Acetaminophen (Tylenol Tab) 650 mg Q4H PRN PO NON-CARDIAC PAIN LEVEL 1-3; Start 06/27/16 at 11:00 Oxycodone/ Acetaminophen (Percocet (5/ 325)) 1 tab Q4H PRN PO REPORTED NON- CARDIAC PAIN 4-7; Start 06/27/16 at 11:00 Morphine Sulfate (morphine) 1 mg Q1H PRN IV PAIN NOT RELIEVED BY OTHERS; Start 06/27/16 at 11:00 Lisinopril (Zestril) 5 mg DAILY PO Last administered on 06/28/16 08:47; Admin Dose 5 MG; Start 06/28/16 at 09:00 Niacin (Niacin) 100 mg QHS PO Last administered on 06/27/16 21:43; Admin Dose 100 MG; Start 06/27/16 at 21:00 GHULAM CUNNINGHAM Jun 28, 2016 14:07
--- NOTE | 2016-06-28 15:12 | PN ---
Date/Time of Note Date/Time of Note DATE: 06/27/16 TIME: 15:11 Late entry Assessment/Plan VTE Prophylaxis VTE Prophylaxis Intervention: other Lines/Catheters IV [facility] Peripheral IV Assessment/Plan Chief Complaint/Hosp Course ASSESSMENT AND PLAN: 1. Non-ST myocardial infarction. Cardiology has been consulted. Continue aspirin, statin. Status post left heart catheterization and PCI of circumflex artery. Continue aspirin, Plavix and statin 3. Essential hypertension, well controlled on Toprol 4. History of thrombocytopenia, chronic no evidence of bleeding. Line Palletizer oncologist has been consulted 5. Nicotine dependency. Place the patient on nicotine patch. Education was provided. Smoking cessation was recommended. 6. Dyslipidemia. Continue statin. Well-controlled We will continue to monitor patient closely. Further recommendations, management and treatment as per clinical course. Problems: Subjective 24 Hr Interval Summary Free Text/Dictation Status post left heart catheterization and PCI of circumflex Denies any chest pain or shortness of breath Exam/Review of Systems Vital Signs Vitals Vital Signs Date Time Temp Pulse Resp B/P Pulse Ox O2 Delivery O2 Flow Rate FiO2 06/28/16 12:06 89 06/28/16 11:50 98.8 18 108/68 94 06/28/16 08:10 2.0 06/27/16 16:45 Room Air Intake and Output 06/27/16 06/27/16 06/28/16 14:59 22:59 06:59 Intake Total 250 ml Balance 250 ml Exam General: The patient is well-developed, Not in acute distress. HEENT: Atraumatic, normocephalic. The pupils are equal and round . Neck: Supple with full range of motion. Chest: Normal expansion of the thorax during inspiration Lungs: Clear to auscultation bilaterally Heart: Normal S1-S2, Regular rhythm and rate. Abdomen: Soft , nontender, nondistended , bowel sounds are present. Extremities: Normal to inspection, no edema no cyanosis, right arm radial side no evidence of hematoma Neurologic: Normal mental status,The patient is awake, alert and oriented . Results Result Diagram: 06/28/16 0725 06/28/16 0725 Results 24 hrs Laboratory Tests Test 06/27/16 18:00 06/28/16 07:25 White Blood Count 10.3 9.9 Red Blood Count 5.15 4.94 Hemoglobin 16.0 15.2 Hematocrit 46.8 45.5 Mean Corpuscular Volume 90.9 92.1 Mean Corpuscular Hemoglobin 31.1 30.8 Mean Corpuscular Hemoglobin Concent 34.2 33.4 Red Cell Distribution Width 13.0 13.1 Platelet Count 72 L 65 L Mean Platelet Volume 14.5 #H Neutrophils % 62.8 60.8 Lymphocytes % 26.9 29.9 Monocytes % 8.4 6.9 Eosinophils % 0.6 1.0 Basophils % 0.5 0.5 Nucleated Red Blood Cells % 0.0 0.0 Neutrophils # 6.5 6.0 Lymphocytes # 2.8 3.0 H Monocytes # 0.9 0.7 Eosinophils # 0.1 0.1 Basophils # 0.1 0.1 Nucleated Red Blood Cells # 0.0 0.0 Sodium Level 138 138 Potassium Level 4.0 3.5 Chloride Level 107 102 Carbon Dioxide Level 24 26 Anion Gap 11 14 Blood Urea Nitrogen 11 10 Creatinine 0.84 1.02 Glucose Level 71 111 Calcium Level 9.1 8.8 Total Bilirubin 0.6 0.8 Direct Bilirubin 0.00 0.00 Indirect Bilirubin 0.6 0.8 Aspartate Amino Transf (AST/SGOT) 39 41 Alanine Aminotransferase (ALT/SGPT) 42 38 Alkaline Phosphatase 76 69 Total Protein 7.2 6.9 Albumin 4.1 3.8 Globulin 3.10 3.10 Albumin/Globulin Ratio 1.32 1.22 Medications Medications Current Medications Atorvastatin Calcium (Lipitor) 20 mg QHS PO Last administered on 06/27/16 21: 43; Admin Dose 20 MG; Start 06/25/16 at 21:00 Metoprolol Succinate (Toprol Xl) 50 mg DAILY PO Last administered on 06/28/16 08:48; Admin Dose 50 MG; Start 06/26/16 at 09:00 Ranolazine (Ranexa) 500 mg Q12 PO Last administered on 06/28/16 08:47; Admin Dose 500 MG; Start 06/25/16 at 21:00 Verapamil HCl 120 mg 120 mg DAILY PO ; Start 06/26/16 at 09:00; Status Future Hold Dextrose/Sodium Chloride (D5-1/2ns) 1,000 ml @ 50 mls/hr Q20H IV Last administered on 06/28/16 04:04; Admin Dose 50 MLS/HR; Start 06/25/16 at 14:40 Lorazepam (Ativan) 0.5 mg Q8H PRN PO ANXIETY; Start 06/25/16 at 15:00 Ondansetron HCl (Zofran Inj) 4 mg Q6H PRN IV NAUSEA AND/OR VOMITING; Start 01/01 at 15:00 Aspirin (Aspirin) 81 mg DAILY PO Last administered on 06/28/16 08:46; Admin Dose 81 MG; Start 06/26/16 at 09:00 Nitroglycerin (Nitroglycerin (Sl Tab) 0.4 Mg) 1 tab Q5M PRN SL CHEST PAIN; Start 06/25/16 at 15:00 Morphine Sulfate (morphine) 1 mg Q4H PRN IV PAIN LEVEL 7-10 Last administered on 06/27/16 22:43; Admin Dose 1 MG; Start 06/25/16 at 15:00 Docusate Sodium (Colace) 100 mg Q12H PRN PO CONSTIPATION; Start 06/25/16 at 15: 00 Bisacodyl (Dulcolax) 5 mg DAILY PRN PO CONSTIPATION; Start 06/25/16 at 15:00 Famotidine (Pepcid) 20 mg Q12 PO Last administered on 06/28/16 08:47; Admin Dose 20 MG; Start 06/25/16 at 21:00 Isosorbide Dinitrate (Isordil) 10 mg TID PO Last administered on 06/28/16 08: 47; Admin Dose 10 MG; Start 06/25/16 at 21:00 Nicotine (Nicoderm 14 Mg/ 24hr) 1 patch DAILY TRANSDERM Last administered on 08:46; Admin Dose 1 PATCH; Start 06/25/16 at 19:00 Acetaminophen (Tylenol Tab) 650 mg Q6H PRN PO PAIN AND OR ELEVATED TEMP Last administered on 06/26/16 21:10; Admin Dose 650 MG; Start 06/26/16 at 09:30 Miscellaneous Information (* Miscellaneous Pharmacy Order) Hold all Metformin ... ONCE XX ; Start 06/27/16 at 11:00; Stop 06/29/16 at 10:59 Clopidogrel Bisulfate (plaVIX) 75 mg DAILY PO Last administered on 06/28/16 08 :46; Admin Dose 75 MG; Start 06/28/16 at 09:00 Acetaminophen (Tylenol Tab) 650 mg Q4H PRN PO NON-CARDIAC PAIN LEVEL 1-3; Start 06/27/16 at 11:00 Oxycodone/ Acetaminophen (Percocet (5/ 325)) 1 tab Q4H PRN PO REPORTED NON- CARDIAC PAIN 4-7; Start 06/27/16 at 11:00 Morphine Sulfate (morphine) 1 mg Q1H PRN IV PAIN NOT RELIEVED BY OTHERS; Start 06/27/16 at 11:00 Lisinopril (Zestril) 5 mg DAILY PO Last administered on 06/28/16 08:47; Admin Dose 5 MG; Start 06/28/16 at 09:00 Niacin (Niacin) 100 mg QHS PO Last administered on 06/27/16 21:43; Admin Dose 100 MG; Start 06/27/16 at 21:00 RIO BUENO MD Jun 28, 2016 15:12
--- NOTE | 2016-06-28 18:02 | DS ---
DATE OF ADMISSION: 06/25/2016 DATE OF DISCHARGE: 06/28/2016 CONSULTANTS 1. Christian Hernandez MD 2. Barbie Alcaraz MD PROCEDURES 1. Echocardiogram which demonstrated a mild concentric left ventricular hypertrophy. Mild enlargem ent of the left ventricular cavity. Severe global left ventricle systolic dysfunction. Ejection fr action 30%. Stage I diastolic dysfunction. Normal appearance of the tricuspid valve, mitral valve and aortic valve; no significant aortic stenosis or insufficiency. 2. Left heart catheterization with coronary angiogram measurement with left ventricular and diastol ic dysfunction, and percutaneous transluminal coronary angioplasty with placement of the Rebel bare metal stent to mid-circumflex. DISCHARGE DIAGNOSES 1. Non-ST elevation myocardial infarction, status post left heart catheterization and percutaneous transluminal coronary angioplasty with placement of Rebel bare metal stent. Patient has been placed on statin, Plavix. At this time, he will follow up cardiology recommendations regarding aspirin, s ayse the patient has a history of thrombocytopenia. 2. Cardiomyopathy, with ejection fraction of 30% on echo - on beta jaci and lisinopril. 3. Thrombocytopenia, stable. No evidence of bleeding. Hematology/oncology has been consulted. 4. Essential hypertension, well-controlled on medical management. 5. Dyslipidemia, stable on statin. 6. History of nicotine abuse, nicotine cessation was recommended. MEDICATION 1. Plavix. 2. Famotidine. 3. Lisinopril. 4. Nitroglycerin. 5. Nicotine patch. 6. Lipitor. 7. Metoprolol. 8. Niacin. 9. Ranexa. ALLERGIES: NO KNOWN DRUG ALLERGIES. HOSPITAL COURSE: This is a very-pleasant, 66-year-old gentleman with past medical history of hypert ension, dyslipidemia, coronary artery disease status post PCI x2, thrombocytopenia, nicotine depende ncy, who presented to [facility] secondary to having chest discomfort, which awoke him around 3:00 a.m. on 06/25/2016. Patient stated the pain was 8/10, radiating to his left should er, accompanied with shortness of breath without any diaphoresis. EKG showed normal sinus rhythm wi th ST and T-wave abnormality with possible inferior lateral ischemia. A troponin was found to be el evated at 0.61. Cardiology was consulted. Patient was placed on Lovenox 80 mg, aspirin and nitrogl ycerin. The patient was admitted to telemetry floor, was seen and evaluated by Cardiology. The pat ient's serial troponins started to reveal non-ST PR with a troponin 1.07 and 2.64. The patient's 2D echocardiogram showed ejection fraction of 30%, with stage I diastolic dysfunction. Hematology/onc ology were consulted secondary to patient's history of thrombocytopenia; patient was optimized for s urgical intervention was taken to cardiac qc lab technician for left heart catheterization, which he was foun d to have occlusion in the circumflex and had a percutaneous transluminal coronary angioplasty with placement of a Rebel bare metal stent in the mid-circumflex. The patient tolerated the procedure; w as taken to recovery room and has been placed on Plavix and aspirin, at this time, as per cardiology recommendation, the patient should be discharged on Plavix secondary to his history of thrombocytop enia. The patient will be followed up with cardiology and house mover helper/oncologist as outpatient for his history of thrombocytopenia. Also, we will have him follow up with his cafeteria or lunchroom checker as outpati ent for his coronary artery disease. CONDITION AT TIME OF DISCHARGE: Stable. LABORATORIES: Today: Sodium 138, potassium 3.5, chloride 102, bicarbonate 26, BUN 10, creatinine 1 .02, glucose 111, calcium 8.8. LFTs all within normal limits. WBC 9.9, hemoglobin 15.2, hematocrit 45.5, platelets 65. CONDITION: Stable. Dictated By: RIO BUENO MD PN/RUPERTO Conf#: [id number] DID#: [id number]
--- NOTE | 2016-06-29 20:53 | RADRPT ---
Vent Rate: 69 bpm RR Interval: 0 msec CO Interval: 192 msec QRS Duration: 162 msec QT Interval: 480 msec QTC Interval: 514 msec P-R-T [place]: 49 - -24 - -44 degrees Normal sinus rhythm Right bundle branch block T wave abnormality, consider inferolateral ischemia Abnormal ECG Electronically Signed By: Ian Aquino [id number]
--- NOTE | 2016-06-29 20:55 | RADRPT ---
Vent Rate: 76 bpm RR Interval: 0 msec PA Interval: 174 msec QRS Duration: 160 msec QT Interval: 470 msec QTC Interval: 528 msec P-R-T [place]: 61 - 0 - -21 degrees Normal sinus rhythm Possible Left atrial enlargement Indeterminate axis Right bundle branch block T wave abnormality, consider inferior ischemia Abnormal ECG Electronically Signed By: Ian Aquino [id number]
== END 2016-06-28 15:55 | disposition home or self-care (01) | DRG 249 ==
LOC: E/R 11:41 → MS4 14:02
PROVIDERS: ADMIT Family Medicine; ATTEND Family Medicine
PROC: 02703DZ Dilation of Coronary Artery, One Artery with Intraluminal Device, Percutaneous Approach (ICD-10-PCS; principal; 2016-06-27)
PROC: 4A023N7 Measurement of Cardiac Sampling and Pressure, Left Heart, Percutaneous Approach (ICD-10-PCS; 2016-06-27)
PROC: 4A0335C Measurement of Arterial Flow, Coronary, Percutaneous Approach (ICD-10-PCS; 2016-06-27)
DX: I21.4 Non-ST elevation (NSTEMI) myocardial infarction (principal); I42.9 Cardiomyopathy, unspecified; D69.6 Thrombocytopenia, unspecified; I24.9 Acute ischemic heart disease, unspecified; I25.10 Atherosclerotic heart disease of native coronary artery without angina pectoris; I10 Essential (primary) hypertension; F17.210 Nicotine dependence, cigarettes, uncomplicated; E78.5 Hyperlipidemia, unspecified; Z87.891 Personal history of nicotine dependence
CPT/HCPCS: 36415; 71010; 80048; 80053; 80061; 82550; 82553; 83615; 83735; 84484; 85025; 85049; 85362; 85378; 85384; 85610; 85670; 85730; 86703; 86704; 86709; 86803; 87340; 92928; 93005; 93306; 93458; C1725; C1769; C1876; C1887; J0583; J1644; J2250; J2270; J7030; J7042; Q9967